=== PATIENT | female | born 1975 | race Caucasian/White ===

== ENCOUNTER 2024-08-23 23:37 | Emergency (ER) | payer OTHER ==
[2024-08-24] MEDS: KETOROLAC 15 MG/ML 1 ML VIAL IM STA (00:15)
[2024-08-24] MEDS: DEXAMETHASONE SOD PHOSPHATE 10 MG/ML 1 ML VIAL IM STA (00:16)
[2024-08-24] MEDS: HYDROmorphone 0.5 MG/0.5 ML SYRINGE IM STA (00:16)
[2024-08-24] MEDS: LIDOCAINE 4% PATCH TOPICAL ONE (00:20)
--- NOTE | 2024-08-24 01:24 | US ---
EXAMINATION TYPE: US venous doppler duplex LE RT DATE OF EXAM: 08/24/2024 12:54 AM COMPARISON: NONE CLINICAL INDICATION: Female, 49 years old with history of pain; Patient states back pain with right l eg cramping that started today. No hx dvt. Patient is not on blood thinners. TECHNIQUE: The lower extremity deep venous system is examined utilizing real time linear array sonog christine with graded compression, color doppler sonography, and spectral doppler. SIDE PERFORMED: Right FINDINGS: VESSELS IMAGED: Common Femoral Vein Deep Femoral Vein Greater Saphenous Vein * Femoral Vein Popliteal Vein Small Saphenous Vein * Proximal Calf Veins (* superficial vessels) Right Leg: Appears negative for DVT IMPRESSION: 1. No evidence of deep vein thrombosis of the right lower extremity. [facility], , 08/24/2024 1:22 AM
[2024-08-24 01:48] VITALS: RESP 18
[2024-08-24] MEDS: HYDROmorphone 0.5 MG/0.5 ML SYRINGE IVP STA (01:48)
--- NOTE | 2024-08-24 01:52 | XR ---
EXAMINATION TYPE: XR lumbar spine 2 or 3V DATE OF EXAM: 08/24/2024 CLINICAL HISTORY: Low back pain after injury TECHNIQUE: Frontal and lateral images of the lumbar spine are obtained. COMPARISON: None. FINDINGS: There are 5 lumbar type vertebral bodies identified. The lumbar spine shows satisfactory alignment without evidence of acute fracture or dislocation. Vertebral body heights and disk space he ights are within normal limits. Essure tubes overlie the sacrum. IMPRESSION: No acute fracture or dislocation is seen in the lumbar spine. [facility], , 08/24/2024 1:50 AM
--- NOTE | 2024-08-24 02:44 | ED ---
Back Pain HPI - General Chief Complaint: Back Pain/Injury Stated Complaint: back pain Time Seen by Provider: 08/23/24 23:46 Source: patient Limitations: no limitations - History of Present Illness Initial Comments: 49-year-old female presenting chief complaint of sciatic pain. Patient has history of sciatic pain. Pain is radiating down her right leg. States that it is particularly bad in her calf at this time. She admits to some numbness and tingling as well in the toes. Denies any injury or trauma. No loss of bowel or bladder control or saddle paresthesia. No fever, chills, nausea, vomiting, abdominal pain, dysuria, hematuria, lower extremity swelling, chest pain, difficulty breathing. - Related Data Previous Rx's Medication Instructions Recorded HYDROcodone/APAP 7.5-325MG [[place] 1 tab PO Q6HR PRN 3 Days #12 tab 08/24/24 7.5-325] Ketorolac [Toradol] 10 mg PO Q6HR PRN #12 tab 08/24/24 Allergies Allergy/AdvReac Type Severity Reaction Status Date / Time morphine AdvReac Itching Verified 08/24/24 00:14 Review of Systems ROS Statement: Those systems with pertinent positive or pertinent negative responses have been documented in the HPI. ROS Other: All systems not noted in ROS Statement are negative. Past Medical History Past Medical History: No Reported History History of Any Multi-Drug Resistant Organisms: None Reported Past Surgical History: Section, Tubal Ligation Additional Past Surgical History / Comment(s): D&C Past Psychological History: No Psychological Hx Reported Smoking Status: Never smoker Past Alcohol Use History: Occasional Past Drug Use History: None Reported General Exam Limitations: no limitations General appearance: alert, in no apparent distress Head exam: Present: atraumatic, normocephalic, normal inspection Eye exam: Present: normal appearance Neck exam: Present: normal inspection Respiratory exam: Present: normal lung sounds bilaterally. Absent: respiratory distress, wheezes, rales, rhonchi, stridor Cardiovascular Exam: Present: regular rate, normal rhythm, normal heart sounds. Absent: systolic murmur, diastolic murmur, rubs, gallop, clicks Extremities exam: Present: normal inspection, full ROM, other. Absent: pedal e sirisha Back exam: Present: normal inspection. Absent: tenderness Neurological exam: Present: alert, oriented X3 Expanded Motor strength exam: RLE: 5, LLE: 5 Psychiatric exam: Present: normal affect, normal mood Skin exam: Present: warm, dry Course Vital Signs 08/23/24 08/24/24 08/24/24 23:38 01:43 02:50 Temperature 97.8 F 98.4 F Pulse Rate 77 68 67 Respiratory 16 18 18 Rate Blood Pressure 133/76 153/81 126/72 O2 Sat by Pulse 97 97 97 Oximetry Medical Decision Making - Medical Decision Making Was pt. sent in by a medical professional or institution (, PA, STAGE MANAGER, urgent care, hospital, or detention...) When possible be specific @ -[No] Did you speak to anyone other than the patient for history (EMS, parent, family, police, friend...)? What history was obtained from this source @ -[No] Did you review nursing and triage notes (agree or disagree)? Why? @ -[I reviewed and agree with nursing and triage notes] Were old charts reviewed (outside hosp., previous admission, EMS record, old EKG, old radiological studies, urgent care reports/EKG's, detention records)? Report findings @ -[No old charts were reviewed] Differential Diagnosis (chest pain, altered mental status, abdominal pain women, abdominal pain men, vaginal bleeding, weakness, fever, dyspnea, syncope, headache, dizziness, GI bleed, back pain, seizure, CVA, palpatations, mental health, musculoskeletal)? @ - [facility] Differential Back Pain: Strain, zoster, cauda equina syndrome, epidural abscess, vertebral osteomyelitis, discitis, fracture, subluxation, disc herniation, DJD, spinal stenosis, dissection, AAA, pancreatitis, peptic ulcer disease, pyelonephritis, kidney stone this is not meant to be an all-inclusive list. EKG interpreted by me (3pts min.). @ -[As above] X-rays interpreted by me (1pt min.). @ -X-ray shows no acute fracture or dislocation CT of the lumbar spine CT interpreted by me (1pt min.). @ -[None done] U/S interpreted by me (1pt. min.). @ -Ultrasound shows no evidence of DVT of the right lower extremity What testing was considered but not performed or refused? (CT, X-rays, U/S, labs)? Why? @ -[None] What meds were considered but not given or refused? Why? @ -[None] Did you discuss the management of the patient with other professionals (professionals i.e. , PA, STAGE MANAGER, lab, RT, psych nurse, geriatric social work professor, rehab assistant, teacher, strategic debriefing officer, renal case manager)? Give summary @ -[No] Was smoking cessation discussed for >3mins.? @ -[No] Was critical care preformed (if so, how long)? @ -[No] Were there social determinants of health that impacted care today? How? (Homelessness, low income, unemployed, alcoholism, drug addiction, transportation, low edu. Level, literacy, decrease access to med. care, penitentiary, rehab)? @ -[No] Was there de-escalation of care discussed even if they declined (Discuss DNR or withdrawal of care, Hospice)? DNR status @ -[No] What co-morbidities impacted this encounter? (DM, HTN, Smoking, COPD, CAD, Cancer, CVA, ARF, Chemo, Hep., AIDS, mental health diagnosis, sleep apnea, morbid obesity)? @ -[None] Was patient admitted / discharged? Hospital course, mention meds given and route, prescriptions, significant lab abnormalities, going to OR and other pertinent info. @ -49-year-old female presenting with chief complaint of exacerbation of her sciatic pain. No injury or trauma. No red flag symptoms. History and physical examination are conducted. Patient is given pain medication. Considering she is having pain to the right lower leg ultrasound is obtained. X-ray of the lumbar spine is also obtained. X-ray and ultrasound are negative. On reassessment patient reports improvement in her pain. She is provided with pain medication for home and referral to orthopedics. Discharged. Follow-up with PCP. Report back to ER with any new or worsening symptoms. Discussed return parameters and answered all questions. Patient conveyed verbal understanding and agreed to the plan. I discussed this case in detail with my attending Dr. Grider Undiagnosed new problem with uncertain prognosis? @ -[No] Drug Therapy requiring intensive monitoring for toxicity (Heparin, Nitro, Insulin, Cardizem)? @ -[No] Were any procedures done? @ -[No] Diagnosis/symptom? @ -Sciatica Acute, or Chronic, or Acute on Chronic? @ -Acute Uncomplicated (without systemic symptoms) or Complicated (systemic symptoms)? @ -Uncomplicated Side effects of treatment? @ -[No] Exacerbation, Progression, or Severe Exacerbation? @ -[No] Poses a threat to life or bodily function? How? (Chest pain, USA, [place], pneumonia, PE, COPD, DKA, ARF, appy, cholecystitis, CVA, Diverticulitis, Homicidal, Suicidal, threat to staff... and all critical care pts) @ -[No] Undiagnosed new problem with uncertain prognosis? @ -[No] Drug Therapy requiring intensive monitoring for toxicity (Heparin, Nitro, Insulin, Cardizem)? @ -[No] Were any procedures done? @ -[No] Diagnosis/symptom? @ -[default] Acute, or Chronic, or Acute on Chronic? @ -[default] Uncomplicated (without systemic symptoms) or Complicated (systemic symptoms)? @ -[default] Side effects of treatment? @ -[No] Exacerbation, Progression, or Severe Exacerbation? @ -[No] Poses a threat to life or bodily function? How? (Chest pain, USA, CA, pneumonia, PE, COPD, DKA, ARF, appy, cholecystitis, CVA, Diverticulitis, Homicidal, Suicidal, threat to staff... and all critical care pts) @ -Not unlikely Disposition Clinical Impression: Sciatica Disposition: HOME SELF-CARE Condition: Good Instructions (If sedation given, give patient instructions): Sciatica (ED) Additional Instructions: Follow-up with PCP and orthopedics. Report back to ER with any new or worsening symptoms. Do not combine ketorolac with other NSAIDs such as ibuprofen or naproxen. Prescriptions: HYDROcodone/APAP 7.5-325MG [[place] 7.5-325] 1 tab PO Q6HR PRN 3 Days #12 tab PRN Reason: Pain Ketorolac [Toradol] 10 mg PO Q6HR PRN #12 tab PRN Reason: Pain Is patient prescribed a controlled substance at d/c from ED?: Yes When asked, does pt state using other controlled substances?: No If prescribed controlled substance>3 days was MAPS reviewed?: Prescribed <3 Days If opioid is for acute pain is fill amount 7 days or less?: Yes Referrals: Samy Wall MD [Primary Care Provider] - 1-2 days Ameya Doyle DO [Doctor of Osteopathic Medicine] - 1-2 days Time of Disposition: 02:44
[2024-08-24] MEDS: HYDROcodone/APAP 7.5-325MG 1 EACH TAB PO ONE (02:59)
[2024-08-24 03:06] VITALS: BP 126/72; PULSE 67; TEMP 98.4
== END 2024-08-24 02:55 | disposition home or self-care (01) ==
LOC: EC 23:37
CPT/HCPCS: 72100; 96372; 96374; 99284

== ENCOUNTER 2024-08-25 13:59 | Observation (INO) | payer OTHER ==
--- NOTE | 2024-08-25 16:18 | ED ---
Back Pain HPI - General Chief Complaint: Back Pain/Injury Stated Complaint: R sided nerve pain Time Seen by Provider: 08/25/24 15:28 Source: family, RN notes reviewed, old records reviewed, Caregiver Mode of arrival: ambulatory Limitations: physical limitation - History of Present Illness Initial Comments: This is a 49-year-old female to the ER. Presents today for evaluation of back pain severe back pain with revisit, patient was here few days ago with severe back pain did outpatient prescription medications exercise and bedrest without help. Patient's pain is severe severely worse than was prior with no new trauma, no neurological deficit but she does complain of increased pain to touch of the right leg Complaint: back pain -: days(s) Place: home Radiation: none Severity: severe Severity scale (1-10): 10 Quality: sharp Consistency: constant Improves With: none Worsens With: none Context: while lifting, turning/twisting, bending Associated Symptoms: denies other symptoms - Related Data Home Medications Medication Instructions Recorded Confirmed Ascorbic Acid [Vitamin C] 1,000 mg PO DAILY 08/25/24 08/25/24 Cholecalciferol (Vitamin D3) 50 mcg PO DAILY 08/25/24 08/25/24 [Vitamin D3 (50 Mcg = 2000 Iu)] Cyanocobalamin (Vitamin B-12) 1,000 mcg PO DAILY 08/25/24 08/25/24 [Vitamin B-12] Inulin/Chromium Picolinate [Fiber 1 tab PO DAILY 08/25/24 08/25/24 Gummies Chew] L.acidoph,Paracasei, B.lactis 1 cap PO DAILY 08/25/24 08/25/24 [Probiotic] Red Yeast Rice 600 mg PO DAILY 08/25/24 08/25/24 methocarbamoL [Robaxin] 500 mg PO BID 08/25/24 08/25/24 Previous Rx's Medication Instructions Recorded Ketorolac [Toradol] 10 mg PO Q6HR PRN #12 tab 08/24/24 Cyclobenzaprine [Flexeril] 5 mg PO TID PRN #40 tablet 08/28/24 Fluconazole [Diflucan] 150 mg PO DAILY #2 tab 08/28/24 HYDROcodone/APAP 7.5-325MG [[place] 1 tab PO Q4-6H PRN #40 tab 08/28/24 7.5-325] methylPREDNISolone Dose Pack 4 mg PO DIRECTED #1 packet 08/28/24 [Medrol Dose Pack] Allergies Allergy/AdvReac Type Severity Reaction Status Date / Time morphine AdvReac Itching Verified 08/25/24 19:21 Review of Systems ROS Statement: Those systems with pertinent positive or pertinent negative responses have been documented in the HPI. ROS Other: All systems not noted in ROS Statement are negative. Past Medical History Past Medical History: No Reported History History of Any Multi-Drug Resistant Organisms: None Reported Past Surgical History: Section, Tubal Ligation Additional Past Surgical History / Comment(s): D&C Past Psychological History: No Psychological Hx Reported Smoking Status: Never smoker Past Alcohol Use History: Occasional Past Drug Use History: None Reported General Exam Limitations: physical limitation General appearance: alert, in no apparent distress Head exam: Present: atraumatic, normocephalic, normal inspection Eye exam: Present: normal appearance, PERRL, EOMI. Absent: scleral icterus, conjunctival injection, periorbital swelling ENT exam: Present: normal exam, mucous membranes moist Neck exam: Present: normal inspection. Absent: tenderness, meningismus, lymphadenopathy Respiratory exam: Present: normal lung sounds bilaterally. Absent: respiratory distress, wheezes, rales, rhonchi, stridor Cardiovascular Exam: Present: regular rate, normal rhythm, normal heart sounds. Absent: systolic murmur, diastolic murmur, rubs, gallop, clicks GI/Abdominal exam: Present: soft, normal bowel sounds. Absent: distended, tenderness, guarding, rebound, rigid Extremities exam: Present: normal inspection, full ROM, normal capillary refill. Absent: tenderness, pedal edema, joint swelling, calf tenderness Back exam: Present: normal inspection Neurological exam: Present: alert, oriented X3, CN II-XII intact Psychiatric exam: Present: normal affect, normal mood Skin exam: Present: warm, dry, intact, normal color. Absent: rash Course Vital Signs 08/25/24 08/25/24 14:30 17:32 Temperature 98.1 F 97.9 F Pulse Rate 67 64 Respiratory 18 16 Rate Blood Pressure 147/90 149/80 O2 Sat by Pulse 98 98 Oximetry - Reevaluation(s) Reevaluation #1: 08/25/24 16:34 Medical records reviewed Reevaluation #2: 08/25/24 16:50 Patient symptoms improved Reevaluation #3: 08/25/24 19:14 Patient informed of results questions answered Reevaluation #4: Was pt. sent in by a medical professional or institution (ADALI Victoria, MEDICAL ADMINISTRATIVE, urgent care, hospital, or longterm...) When possible be specific @ -no Did you speak to anyone other than the patient for history (EMS, parent, family, police, friend...)? What history was obtained from this source @ -no Did you review nursing and triage notes (agree or disagree)? Why? @ -agree Are old charts reviewed (outside hosp., previous admission, EMS record, old EKG, old radiological studies, urgent care reports/EKG's, longterm records)? Report findings @ -yes Differential Diagnosis (chest pain, altered mental status, abdominal pain women, abdominal pain men, vaginal bleeding, weakness, fever, dyspnea, syncope, headache, dizziness, GI bleed, back pain, seizure, CVA, palpatations, mental health, musculoskeletal)? @ -prior EKG interpreted by me (3pts min.). @ -no X-rays interpreted by me (1pt min.). @ -no CT interpreted by me (1pt min.). @ -Yes positive for likely nerve impingement with hernia U/S interpreted by me (1pt. min.). @ -no What testing was considered but not performed or refused? (CT, X-rays, U/S, l abs)? Why? @ -none What meds were considered but not given or refused? Why? @ -none Did you discuss the management of the patient with other professionals (professionals i.e. ADALI Victoria, MEDICAL ADMINISTRATIVE, lab, RT, psych nurse, social service technician, basting puller, teacher, finance officer, case aide)? Give summary @ -no Was smoking cessation discussed for >3mins.? @ -no Was critical care preformed (if so, how long)? @ -no Were there social determinants of health that impacted care today? How? (Homelessness, low income, unemployed, alcoholism, drug addiction, transportation, low edu. Level, literacy, decrease access to med. care, [facility], rehab)? @ -none Was there de-escalation of care discussed even if they declined (Discuss DNR or withdrawal of care, Hospice)? DNR status @ -no What co-morbidities impacted this encounter? (DM, HTN, Smoking, COPD, CAD, Cancer, CVA, ARF, Chemo, Hep., AIDS, mental health diagnosis, sleep apnea, morbid obesity)? @ -none Was patient admitted / discharged? Hospital course, mention meds given and route, prescriptions, significant lab abnormalities, going to OR and other pertinent info. @ - 49 female to the ER for evaluation patient presents today for evaluation in regards to severe back pain and sciatica pain, patient will be admitted for orthopedic spine evaluation Admitted Undiagnosed new problem with uncertain prognosis? @ -no Drug Therapy requiring intensive monitoring for toxicity (Heparin, Nitro, Insulin, Cardizem)? @ -no Were any procedures done? @ -no Diagnosis/symptom? @ -Back pain with nerve impingement Acute, or Chronic, or Acute on Chronic? @ -Acute Uncomplicated (without systemic symptoms) or Complicated (systemic symptoms)? @ -Complicated Side effects of treatment? @ -no Exacerbation, Progression, or Severe Exacerbation? @ -exacerbation Poses a threat to life or bodily function? How? (Chest pain, [place], [place], pneumonia, PE, COPD, DKA, ARF, appy, cholecystitis, CVA, Diverticulitis, Homicidal, Suicidal, threat to staff... and all critical care pts) @ -yes significant sciatica Reevaluation #5: Differential Back Pain: Strain, zoster, cauda equina syndrome, epidural abscess, vertebral osteomyelitis, discitis, fracture, subluxation, disc herniation, DJD, spinal stenosis, dissection, AAA, pancreatitis, peptic ulcer disease, pyelonephritis, kidney stone, this is not meant to be an all-inclusive list. - Consultations Consultation #1: Dr. Carlos's and will see this patient in consult Consultation #2: Spoke with micki who agrees to admit this patient Medical Decision Making - Medical Decision Making 49 female to the ER for evaluation patient presents today for evaluation in regards to severe back pain and sciatica pain, patient will be admitted for orthopedic spine evaluation - Lab Data Result diagrams: 08/28/24 03:25 08/28/24 03:25 Lab Results 08/25/24 08/25/24 08/25/24 Range/Units 16:28 16:28 16:28 WBC 5.8 (3.8-10.6) k/uL RBC 4.47 (3.80-5.40) m/uL Hgb 13.9 (11.4-16.0) gm/dL Hct 42.5 (34.0-46.0) % MCV 94.9 (80.0-100.0) fL MCH 31.0 (25.0-35.0) pg MCHC 32.6 (31.0-37.0) g/dL RDW 12.4 (11.5-15.5) % Plt Count 146 L (150-450) k/uL MPV 9.6 Neutrophils % 81 % Lymphocytes % 13 % Monocytes % 4 % Eosinophils % 1 % Basophils % 0 % Neutrophils # 4.7 (1.3-7.7) k/uL Lymphocytes # 0.8 L (1.0-4.8) k/uL Monocytes # 0.2 (0-1.0) k/uL Eosinophils # 0.0 (0-0.7) k/uL Basophils # 0.0 (0-0.2) k/uL PT 11.3 (10.0-12.5) sec INR 1.0 (<1.2) APTT 23.9 (22.0-30.0) sec Sodium 137 (137-145) mmol/L Potassium 4.9 (3.5-5.1) mmol/L Chloride 107 (98-107) mmol/L Carbon Dioxide 22 (22-30) mmol/L Anion Gap 8 mmol/L BUN 22 H (7-17) mg/dL Creatinine 0.56 (0.52-1.04) mg/dL Est GFR (CKD-EPI)AfAm >90 (>60 ml/min/1.73 sqM) Est GFR (CKD-EPI)NonAf >90 (>60 ml/min/1.73 sqM) Glucose 115 H (74-99) mg/dL Plasma Lactic Acid Cm (0.7-2.0) mmol/L Calcium 9.4 (8.4-10.2) mg/dL Phosphorus 3.6 (2.4-5.1) Magnesium 1.8 (1.6-2.3) mg/dL Total Bilirubin 0.7 (0.2-1.3) mg/dL AST 40 H (14-36) U/L ALT 32 (4-34) U/L Alkaline Phosphatase 49 (38-126) U/L Troponin I (0.000-0.034) ng/mL Total Protein 7.7 (6.3-8.2) g/dL Albumin 4.9 (3.5-5.0) g/dL 08/25/24 08/25/24 Range/Units 16:28 16:28 WBC (3.8-10.6) k/uL RBC (3.80-5.40) m/uL Hgb (11.4-16.0) gm/dL Hct (34.0-46.0) % MCV (80.0-100.0) fL MCH (25.0-35.0) pg MCHC (31.0-37.0) g/dL RDW (11.5-15.5) % Plt Count (150-450) k/uL MPV Neutrophils % % Lymphocytes % % Monocytes % % Eosinophils % % Basophils % % Neutrophils # (1.3-7.7) k/uL Lymphocytes # (1.0-4.8) k/uL Monocytes # (0-1.0) k/uL Eosinophils # (0-0.7) k/uL Basophils # (0-0.2) k/uL PT (10.0-12.5) sec INR (<1.2) APTT (22.0-30.0) sec Sodium (137-145) mmol/L Potassium (3.5-5.1) mmol/L Chloride (98-107) mmol/L Carbon Dioxide (22-30) mmol/L Anion Gap mmol/L BUN (7-17) mg/dL Creatinine (0.52-1.04) mg/dL Est GFR (CKD-EPI)AfAm (>60 ml/min/1.73 sqM) Est GFR (CKD-EPI)NonAf (>60 ml/min/1.73 sqM) Glucose (74-99) mg/dL Plasma Lactic Acid Cm 0.8 (0.7-2.0) mmol/L Calcium (8.4-10.2) mg/dL Phosphorus (2.4-5.1) Magnesium (1.6-2.3) mg/dL Total Bilirubin (0.2-1.3) mg/dL AST (14-36) U/L ALT (4-34) U/L Alkaline Phosphatase (38-126) U/L Troponin I <0.012 (0.000-0.034) ng/mL Total Protein (6.3-8.2) g/dL Albumin (3.5-5.0) g/dL - Radiology Data Radiology results: report reviewed (CT abdomen pelvis LS spine positive for nerve compression), image reviewed Disposition Clinical Impression: Sciatica, Strain of lumbar region, Mid back pain, Lumbar radiculopathy Disposition: ADMITTED IP TO THIS [facility] Condition: Fair Is patient prescribed a controlled substance at d/c from ED?: No Time of Disposition: 19:00
[2024-08-25] MEDS: HYDROmorphone 1 MG/ML 1 ML SYRINGE IVP STA ×3 (16:24→20:30)
[2024-08-25] MEDS: KETOROLAC 15 MG/ML 1 ML VIAL IVP STA (16:24)
[2024-08-25] MEDS: SODIUM CHLORIDE 0.9% 1,000 ML IV STA ×2 (16:32)
[2024-08-25 16:38] LABS: Basophils % (A) 0 %; Eosinophils % (A) 1 %; HCT 42.5 % (34.0-46.0); HGB 13.9 gm/dL (11.4-16.0); Lymphocytes # (A) 0.8 k/uL (1.0-4.8); Lymphocytes % (A) 13 %; MCHC 32.6 g/dL (31.0-37.0); MCV 94.9 fL (80.0-100.0); Mean Platelet Volume 9.6; Monocytes # (A) 0.2 k/uL (0-1.0); Monocytes % (A) 4 %; Neutrophils # (A) 4.7 k/uL (1.3-7.7); Neutrophils % (A) 81 %; Platelet Count 146 k/uL (150-450); RBC 4.47 m/uL (3.80-5.40); RDW 12.4 % (11.5-15.5); WBC 5.8 k/uL (3.8-10.6)
[2024-08-25 16:49] LABS: Partial Thromboplastin Time 23.9 sec (22.0-30.0); Prothrombin Time 11.3 sec (10.0-12.5)
[2024-08-25] MEDS: ACETAMINOPHEN IV (For NPO) 1,000 MG in EMPTY BAG 1 BAG IVPB STA (16:53)
[2024-08-25 16:57] LABS: ALT 32 U/L (4-34); African American GFR (CKD) >90 (>60 ml/min/1.73 sqM); Albumin 4.9 g/dL (3.5-5.0); Anion Gap 8 mmol/L; Blood Urea Nitrogen 22 mg/dL (7-17); Calcium 9.4 mg/dL (8.4-10.2); Carbon Dioxide 22 mmol/L (22-30); Chloride 107 mmol/L (98-107); Glucose 115 mg/dL (74-99); Non-African American GFR(CKD) >90 (>60 ml/min/1.73 sqM); Sodium 137 mmol/L (137-145); Total Bilirubin 0.7 mg/dL (0.2-1.3)
[2024-08-25 17:08] LABS: AST 40 U/L (14-36); Alkaline Phosphatase 49 U/L (38-126); Magnesium 1.8 mg/dL (1.6-2.3); Potassium 4.9 mmol/L (3.5-5.1); Total Protein 7.7 g/dL (6.3-8.2)
[2024-08-25] MEDS ORDERED: HYDROmorphone 2 MG/ML 1 ML SYRINGE IVP PRN (18:03)
--- NOTE | 2024-08-25 18:04 | CT ---
EXAMINATION TYPE: CT lumbar spine w con DATE OF EXAM: 08/25/2024 5:46 PM COMPARISON: CT abdomen pelvis same day. . CLINICAL INDICATION: Female, 49 years old with history of back pain; PHH, C/O back pain that radiates down rt leg. TECHNIQUE: Multiple axial images were obtained from the midportion of T11 through the sacroiliac yousuf nts. Soft tissue and bone windows in coronal and sagittal planes were obtained and reviewed. 3-D ref ormats of the bones were created on a separate workstation and submitted for review. Contrast used:100ml mL of Isovue 300 with IV Contrast, (None, if empty). Oral contrast used: (None, if empty). CT DLP: Combined DLP of 984.4 mGycm, Automated exposure control for dose reduction was used. FINDINGS: Alignment: There are 5 lumbar type vertebral bodies within normal alignment. Bone: No evidence of fracture is identified. Multilevel degeneration with mild osteophyte formation and facet arthropathy. Discs: T12-L1: No spinal canal or neural foraminal stenosis is identified. L1-L2: No spinal canal or neural foraminal stenosis is identified. L2-L3: Disc bulge without significant spinal canal or neural foraminal stenosis. L3-L4: Disc bulge without significant spinal canal or neural foraminal stenosis. L4-L5: Disc bulge without significant spinal canal or neural foraminal stenosis. L5-S1: Right central and foraminal disc herniation suggested series 206 image 61 Other: None IMPRESSION: 1. No evidence for spinal fracture. 2. L5-S1 disc extrusion with displacement of the exiting right nerve.. [facility], , 08/25/2024 6:02 PM
--- NOTE | 2024-08-25 18:06 | CT ---
EXAMINATION TYPE: CT abdomen pelvis w con DATE OF EXAM: 08/25/2024 5:46 PM COMPARISON: Lumbar spine same day. CLINICAL INDICATION: Female, 49 years old with history of back pain; C/O back pain that radiates down rt leg. TECHNIQUE: Axial CT abdomen pelvis w con;Sagittal and coronal reformats were created on a separate w orkstation. Contrast used:100ml mL of Isovue 300 with IV Contrast, (none if empty) Oral contrast used: without Oral Contrast (none if empty) CT DLP: Combined DLP of 984.4 mGycm, Automated exposure control for dose reduction was used. FINDINGS: LOWER CHEST: Unremarkable ABDOMEN LIVER: Unremarkable GALLBLADDER AND BILE DUCTS: Unremarkable. PANCREAS: Unremarkable. SPLEEN: Unremarkable. ADRENAL GLANDS: Unremarkable. KIDNEYS AND URETERS: No evidence of hydronephrosis or renal calculus. The ureters are unremarkable. PELVIS BLADDER: No evidence for wall thickening or mass given limitations of exam. REPRODUCTIVE: Tubal ligation devices bilaterally present bilaterally. ABDOMEN & PELVIS STOMACH AND BOWEL: No evidence of bowel obstruction. PERITONEUM/RETROPERITONEUM: No evidence of pneumoperitoneum or free fluid. VASCULATURE: No evidence of aortic aneurysm. MUSCULOSKELETAL: No acute osseous abnormalities, L5-S1 right foraminal disc extrusion displacing the exiting right nerve. LYMPH NODES: No gross evidence for lymphadenopathy. SOFT TISSUE/ABDOMINAL WALL: Fat-containing umbilical hernia. IMPRESSION: 1. No evidence for acute abdominal process. 2. L5-S1 disc extrusion with displacement of the exiting right nerve. Consider evaluation with MRI. [facility], , 08/25/2024 6:04 PM
[2024-08-25] MEDS: diphenhydrAMINE 50 MG/ML 1 ML VIAL IVP STA (18:15)
[2024-08-25] MEDS ORDERED: ONDANSETRON 4 MG/2 ML VIAL IVP PRN (18:59)
[2024-08-25] MEDS ORDERED: NALOXONE 0.4 MG/ML 1 ML VIAL IV PRN (18:59)
--- NOTE | 2024-08-25 19:34 | P.PN ---
Progress Note - Text Progress Note Date: 08/25/24 Discussed case with ED provider. CT reviewed. Per report pt has severe RLE radiculopathy that is refractory to conservative measures. She has come back to the ED a couple of times now for eval. Initial treatment with conservative measures provided some relief, but the sx have returned and severely. No BI or UI. RLE pain and weakness and severe LBP and neurogenic pain. CT reviewed and shows two levels of severe spondylotic collapse at L4-5 and L5-S1. There is disc extrusion on the RHS of L5-S1 causing severe foraminal and central stenosis. There is a smaller HNP at L4-5 causing moderate central and severe foraminal stenosis. No fractures noted. No lesions. Agree with admission, start IV decadron, pain control, medicine to see. MRI w/o Lumbar spine URGENT. Will eval after MRI done for likely surgical intervention.
[2024-08-25] MEDS: DEXAMETHASONE SOD PHOSPHATE 10 MG/ML 1 ML VIAL IVP STA (20:30)
[2024-08-25] MEDS: SODIUM CHLORIDE 0.9% 1,000 ML IV SCH (20:31)
--- NOTE | 2024-08-25 20:34 | P.HPIM ---
History of Present Illness H&P Date: 08/25/24 Chief Complaint: Back pain History of present illness; Nga Perea is a 49-year-old female with no medical history presenting with back pain. Patient states pain began Wednesday while at gym, after her workout. She states that she was bending in the shower when pain started. Pain was in her right lower back shooting down her right leg posteriorly. She called EMS and was taken to [facility], treated for pain and subsequently discharged. Her pain continued through the day and she was seen later that evening and [facility] ER and was treated with Toradol and [facility] and was discharged. patient followed up with her PCP and was given prednisone injection and oral dose of prednisone with lidocaine patch, which only mildly improved her symptoms. Subsequently her pain worsened and return to the ER today. Today patient endorses similar pain with paresthesia in right foot. She also has hyperesthesia on her right sampson. Pain is currently 8 out of 10. She has no other complaints at this time. She reports absence of urinary retention, saddle anesthesia, fecal incontinence. Patient reports absence of fever, chills, weight loss, chest pain, palpitations, diaphoresis, dyspnea, cough, nausea, vomiting, constipation, diarrhea, abdominal pain, weakness, myalgia, dizziness, headache, and dysuria. Lumbar spine CT done independently interpreted in the ER showed no evidence of spinal fracture, L5-S1 disc extrusion with displacement of the exiting right n erve. CT abdomen and pelvis done independently interpreted showed no acute abdominal process. Spoke with the ER physician, patient admission was accepted by internal medicine service for treatment of back pain REVIEW OF SYSTEMS: Pertinent positives and negatives noted in HPI. PHYSICAL EXAMINATION: Vitals reviewed GENERAL: No acute distress. Well developed, well nourished. HEENT: Pupils are round and equally reacting to light. EOMI. No scleral icterus. Normocephalic, atraumatic. CARDIOVASCULAR: S1 and S2 present. No murmurs, rubs, or gallops. PULMONARY: Chest is clear to auscultation, no wheezing, rhonchi, or crackles. ABDOMEN: Soft, nontender, nondistended, normoactive bowel sounds. No palpable organomegaly. MUSCULOSKELETAL: No apparent joint swelling and deformities. EXTREMITIES: No apparent cyanosis, clubbing, or pedal edema. NEUROLOGICAL: The patient is alert and oriented x3, Gross neurological examination did not reveal any focal deficits. 5/5 Strength bilateral UE and LE. Positive right straight leg test, no tenderness of back, no loss of sensation. SKIN: No apparent rashes. Assessment and plan Nga Perea is a 49-year-old female with no medical history presenting with back pain. Spoke with the ER physician and admission was accepted by internal medicine for treatment of back pain and right leg radiculopathy. #Right leg radiculopathy #Back pain Lumbar spine CT and abdominal CT with findings of no spinal fracture, L5-S1 disc extrusion with displacement of the exiting nerve WBC 5.8, hemoglobin 13.9, troponin negative are all WNL Continue Dilaudid 1 mg IVP as needed q3hr for severe pain - Begin Gabapentin 400 mg BID Continue dexamethasone 4 mg IVP every 6 hour Order MRI lumbar spine wo contrast URGENT Orthopedic surgery consulted for radiculopathy F: P.o. E: Replete as needed N: Regular diet DVT ppx: Subq Lovenox 40 meq daily Code status: Full code Anticipated discharge place: Home Anticipated discharge time: Less than 2 days Dictation was produced using [employer] dictation software. Please excuse any grammatical, word or spelling errors. Past Medical History Past Medical History: No Reported History History of Any Multi-Drug Resistant Organisms: None Reported Past Surgical History: Section, Tubal Ligation Additional Past Surgical History / Comment(s): D&C Past Psychological History: No Psychological Hx Reported Smoking Status: Never smoker Past Alcohol Use History: Occasional Past Drug Use History: None Reported Medications and Allergies Home Medications Medication Instructions Recorded Confirmed Type HYDROcodone/APAP 7.5-325MG [[facility] 1 tab PO Q6HR PRN 3 Days #12 tab 08/24/24 08/25/24 Rx 7.5-325] Ketorolac [Toradol] 10 mg PO Q6HR PRN #12 tab 08/24/24 08/25/24 Rx Ascorbic Acid [Vitamin C] 1,000 mg PO DAILY 08/25/24 08/25/24 History Cholecalciferol (Vitamin D3) 50 mcg PO DAILY 08/25/24 08/25/24 History [Vitamin D3 (50 Mcg = 2000 Iu)] Cyanocobalamin (Vitamin B-12) 1,000 mcg PO DAILY 08/25/24 08/25/24 History [Vitamin B-12] Inulin/Chromium Picolinate [Fiber 1 tab PO DAILY 08/25/24 08/25/24 History Gummies Chew] L.acidoph,Paracasei, B.lactis 1 cap PO DAILY 08/25/24 08/25/24 History [Probiotic] Lidocaine 5% Patch [Lidoderm] 1 patch TOPICAL DAILY 08/25/24 08/25/24 History Red Yeast Rice 600 mg PO DAILY 08/25/24 08/25/24 History methocarbamoL [Robaxin] 500 mg PO BID 08/25/24 08/25/24 History predniSONE See Taper PO DIRECTED 08/25/24 08/25/24 History Allergies Allergy/AdvReac Type Severity Reaction Status Date / Time morphine AdvReac Itching Verified 08/25/24 19:21 Physical Exam Vitals: Vital Signs Temp Pulse Resp BP Pulse Ox 08/25/24 17:32 97.9 F 64 16 149/80 98 08/25/24 14:30 98.1 F 67 18 147/90 98 Intake and Output 08/25/24 08/25/24 08/25/24 06:59 14:59 22:59 Other: Weight 74.843 kg Results CBC & Chem 7: 08/25/24 16:28 08/25/24 16:28 Labs: Abnormal Lab Results - Last 24 Hours (Table) 08/25/24 08/25/24 Range/Units 16:28 16:28 Plt Count 146 L (150-450) k/uL Lymphocytes # 0.8 L (1.0-4.8) k/uL BUN 22 H (7-17) mg/dL Glucose 115 H (74-99) mg/dL AST 40 H (14-36) U/L Assessment and Plan Assessment: I have seen and evaluated the patient today. I Discussed the case with the resident and agree with the resident's findings I edited the assessment and plan as necessary as documented in the resident's note.
[2024-08-25] MEDS: LORazepam 2 MG/ML INJ IV STA (20:35)
--- NOTE | 2024-08-25 22:08 | MR ---
EXAMINATION TYPE: MR lumbar spine wo con DATE OF EXAM: 08/25/2024 9:48 PM COMPARISON: CT same day. CLINICAL INDICATION: Female, 49 years old with history of radiculopathy, Radiculopathy, low back pain into right leg TECHNIQUE: Multi planar, multi sequence imaging was performed utilizing: T1-weighted, T2-weighted, a nd turbo inversion recovery imaging of the lumbar spine. IV Contrast: cc . (None if empty) FINDINGS: Alignment: The lumbar vertebral bodies have preserved heights and alignment. Cord: The conus medullaris and the distal spinal cord appear unremarkable with regards to their signa l intensity and morphology. Bones/Discs: Mild degeneration changes throughout the spine with osteophyte formation and facet joint arthropathy. Intervertebral disc signal is maintained. Reactive adjoining endplate edema at L5-S1 T12-L1: No evidence of significant spinal canal stenosis or neural foraminal stenosis. L1-L2: No evidence of significant spinal canal stenosis or neural foraminal stenosis. L2-L3: No evidence of significant spinal canal stenosis. Facet joint arthropathy mild bilateral neura l foraminal stenosis. L3-L4: No evidence of significant spinal canal stenosis. Facet joint arthropathy mild bilateral neura l foraminal stenosis. L4-L5: No evidence of significant spinal canal stenosis. Facet joint arthropathy mild bilateral neura l foraminal stenosis. L5-S1: Right foraminal/right paracentral disc extrusion with 11 mm superior migration. 7 mm focus of disc sequestration also present near the L4-L5 joint space series 411 image 13 No significant spinal canal or neural foraminal stenosis in the remainder of the visualized levels. Other findings: None. IMPRESSION: Findings confirmed from CT same day with disc extrusion with superior migration of disc material up t o 11 mm with disc sequestration also present measuring 7 mm. This displaces the exiting right nerve a t L5-S1. [facility], Workstation: [id number], 08/25/2024 10:06 PM
[2024-08-26] MEDS: GABAPENTIN 400 MG CAP PO SCH (00:01)
[2024-08-26] MEDS: HYDROmorphone 2 MG/ML 1 ML SYRINGE IVP PRN (00:01)
[2024-08-26] MEDS: DEXAMETHASONE SOD PHOSPHATE 4 MG/ML 1 ML VIAL IVP SCH (00:01)
[2024-08-26 04:23] LABS: Appearance,Urine Clear (Clear); Bilirubin,Urine Negative (Negative); Blood,Urine Negative (Negative); Color,Urine Colorless; Glucose,Urine (UA) Negative (Negative); Ketones,Urine Negative (Negative); Leukocyte Esterase,Urine Negative (Negative); Nitrite,Urine Negative (Negative); PH, Urine 6.5 (5.0-8.0); Protein,Urine Negative (Negative); Specific Gravity,Urine 1.032 (1.001-1.035); Urobilinogen,Urine <2.0 mg/dL (<2.0)
[2024-08-26 09:03] LABS: Basophils # (A) 0 X 10*3/uL (0.00-0.10); Basophils % (A) 0 %; Eosinophils # (A) 0 X 10*3/uL (0.04-0.35); Eosinophils % (A) 0 %; HCT 36.7 % (37.2-46.3); HGB 12.1 g/dL (12.0-15.0); Lymphocytes # (A) 0.38 X 10*3/uL (0.90-5.00); Lymphocytes % (A) 7.8 %; MCH 31.8 pg (27.0-32.0); MCV 96.6 FL (80.0-97.0); Mean Platelet Volume 12.6 FL (9.5-12.2); Monocytes # (A) 0.06 X 10*3/uL (0.20-1.00); Monocytes % (A) 1.2 %; NRBC Per 100 WBC 0 X 10*3/uL (0.00-0.01); Neutrophils % (A) 90.6 %; Platelet Count 133 X 10*3/uL (140-440); RDW 12.9 % (11.5-14.5); WBC 4.86 X 10*3/uL (4.50-10.00)
[2024-08-26 09:17] LABS: Albumin 4.2 g/dL (3.8-4.9); BUN/Creat Ratio 28.33 Ratio (12.00-20.00); Carbon Dioxide 22.3 mmol/L (21.6-31.8); Chloride 105 mmol/L (96-109); Glucose 147 mg/dL (70-110); Potassium 4.7 mmol/L (3.5-5.5); Sodium 138 mmol/L (135-145); Total Protein 6.3 g/dL (6.2-8.2)
[2024-08-26 09:18] LABS: ALT 25 U/L (8-44); AST 20 U/L (13-35); Alkaline Phosphatase 50 U/L (41-126); Globulin 2.1 g/dL (1.6-3.3); Total Bilirubin 0.3 mg/dL (0.3-1.2)
[2024-08-26] MEDS: PANTOPRAZOLE 40 MG/10 ML VIAL IV SCH (10:05)
[2024-08-26] MEDS: ENOXAPARIN 40 MG/0.4 ML SYRINGE SQ SCH (10:06)
[2024-08-26] MEDS: SENNOSIDES 8.6 MG TAB PO SCH (11:08)
--- NOTE | 2024-08-26 15:36 | P.PN ---
Subjective Progress Note Date: 08/26/24 Subjective: Patient seen and examined at the bedside. Patient continues to have 8 out of 10 lower back pain radiating down her right leg associated with weakness, numbness and tingling All Systems reviewed and pertinent positives and negatives noted in HPI, all other symptoms are negative Objective: Vital signs reviewed. General: non toxic, no distress, appears at stated age, normal weight Derm: no unusual rashes/lesions, warm Head: atraumatic, normocephalic, symmetric Eyes: EOMI, no lid lag, anicteric sclera, pupils equal round reactive to light ENT: Nose and ears atraumatic Neck: No cervical lymphadenopathy, trachea midline, supple Mouth: no lip lesion, mucus membranes moist Cardiovascular: S1S2 reg, no murmur, positive dorsalis pedis pulse bilateral, no edema Lungs: CTA bilateral, no rhonchi, no rales, no accessory muscle use Abdominal: soft, nontender to palpation, no guarding Ext: muscle strength 5 out of 5 in all 4 extremities grossly, no gross muscle atrophy, no contractures, Neuro: CN II-XI grossly intact, no gross focal neuro deficits Psych: Alert, oriented, appropriate affect Data reviewed today: Pertinent Labs: WBC 4.86, hemoglobin 12.1, platelet count 133, sodium 138, potassium 4.7, creatinine 0.6, glucose 147, calcium 9.0 Images: No new images Assessment and Plan: Nga Perea is a 49-year-old female with no medical history presenting with back pain. Spoke with the ER physician and admission was accepted by internal medicine for treatment of back pain and right leg radiculopathy. #Back pain refractory to conservative measures #Right leg radiculopathy secondary to lumbosacral disc herniation #History of right sciatica Lumbar spine CT and abdominal CT with findings of no spinal fracture, L5-S1 disc extrusion with displacement of the exiting nerve Lumbar spine MRI shows disc extrusion at L5-S1 and disc sequestration at L4-L5 Continue Dilaudid 1 mg IVP as needed q3hr for severe pain Continue with gabapentin 400 mg BID Continue dexamethasone 4 mg IVP every 6 hour Orthopedic surgery consulted for radiculopathy, likely need surgical intervention F: P.o. E: Replete as needed N: Regular diet DVT ppx: Subq Lovenox 40 meq daily Code status: Full code Anticipated discharge place: Home Anticipated discharge time: Less than 2 days I saw and evaluated the patient during the cervantes and critical portions of this encounter, and discussed the case in detail with the resident author of this note, I agree with the Assessment and Plan, and my changes, if any, are highlighted in blue. Objective - Vital Signs Vital signs: Vital Signs Temp 98.2 F 08/26/24 08:12 Pulse 87 08/26/24 08:12 Resp 16 08/26/24 08:12 BP 120/66 08/26/24 08:12 Pulse Ox 93 L 08/26/24 08:12 FiO2 Intake & Output 08/25/24 08/26/24 08/26/24 18:59 06:59 18:59 Output Total 450 Balance -450 Weight 74.843 kg 74.843 kg Output: Urine 450 Other: Voiding Method Toilet - Labs CBC & Chem 7: 08/26/24 04:42 08/26/24 04:42 Labs: Abnormal Lab Results - Last 24 Hours (Table) 08/25/24 08/25/24 08/26/24 Range/Units 16:28 16:28 04:42 RBC 3.80 L (4.10-5.20) X 10*6/uL Hct 36.7 L (37.2-46.3) % Plt Count 146 L 133 L (150-450) k/uL MPV 12.6 H (9.5-12.2) FL Lymphocytes # 0.8 L 0.38 L (1.0-4.8) k/uL Monocytes # 0.06 L (0.20-1.00) X 10*3/uL Eosinophils # 0 L (0.04-0.35) X 10*3/uL BUN 22 H (7-17) mg/dL BUN/Creatinine Ratio (12.00-20.00) Ratio Glucose 115 H (74-99) mg/dL AST 40 H (14-36) U/L 08/26/24 Range/Units 04:42 RBC (4.10-5.20) X 10*6/uL Hct (37.2-46.3) % Plt Count (150-450) k/uL MPV (9.5-12.2) FL Lymphocytes # (1.0-4.8) k/uL Monocytes # (0.20-1.00) X 10*3/uL Eosinophils # (0.04-0.35) X 10*3/uL BUN (7-17) mg/dL BUN/Creatinine Ratio 28.33 H (12.00-20.00) Ratio Glucose 147 H (74-99) mg/dL AST (14-36) U/L
--- NOTE | 2024-08-26 15:44 | P.CNOR ---
History of Present Illness - [facility] Consult date: 08/26/24 Requesting physician: Michael Mendoza Consult reason: other (RLE radiculopathy, back pain) History of present illness: History of Presenting Illness Patient is a pleasant 49-year-old female who presented to the ER due to increased back pain that radiates into her right lower extremity. Our services have been consulted for further evaluation of her lumbar spine. Patient states that her symptoms began on 08/23/2024, after she completed a workout at the gym. Patient states that she had been to the ER with evaluation and was discharged home. Patient states the she then followed up with her PCP and was provided a steroid injection, steroid pack, and lidocaine patches. she reports mild relief of her symptoms. Patient return to the ER last night, 08/25/2024, with increased pain in her low back radiating into the right lower extremity with numbness and tingling. Patient seen and examined today on 4 S.S. Patient is resting comfortably in bed. Spouse is at bedside. Patient continues to report moderate to severe low back pain that radiates into the right lower extremity, associated with numbness and tingling. patient also describes hyperesthesia of her right sampson. Patient denies any bowel or bladder incontinence or retention, perineal numbness or tingling, or saddle anesthesia. CT and MRI of the lumbar spine have been discus sed with patient. Informed patient that we are recommending surgical intervention of L5-S1 minimally invasive right laminoforaminotomy with microdiscectomy. Questions and concerns have been discussed and patient would like to proceed with surgical intervention tomorrow 08/27/2024. Patient will be n.p.o. at midnight. Review of Systems Pertinent positives and negatives as discussed in HPI, a complete review of systems was performed and all other systems are negative. Physical Examination General: The patient is awake and alert, in no acute distress Skin: Skin is warm and dry with no obvious rashes or lesions. Eye: Pupils are equal, round and reactive to light, extra-ocular movements are intact; there is normal conjunctiva bilaterally. Neck: The neck is supple, there is no tenderness and ROM intact. Cardiovascular: There is a regular rate and rhythm. No murmur, rub or gallop is appreciated. Respiratory: Respirations are non-labored, breath sounds are equal. Gastrointestinal: Soft, slightly distended, tender abdomen to palpation Back: There is no tenderness to palpation in the midline, paralumbar, parathoracic or buttocks region. There is no obvious deformity. Musculoskeletal: Right: Shoulder abduction 5/5, elbow flexors 5/5, wrist dorsiflexors 5/5. finger abductor 5/5, expediter 5/5, hip flexor 5/5, knee flexor 4/ 5, ankle dorsiflexor 4/5, ankle plantarflexion 4/5 and extensor hallucis 4/5. Left: Shoulder abduction 5/5, elbow flexors 5/5, wrist dorsiflexors 5/5. finger abductor 5/5, expediter 5/5, hip flexor 5/5, knee flexor 5/5, ankle dorsiflexor 5/5, ankle plantarflexion 5/5 and extensor hallucis 5/5. Neurological: CN 2-12 intact. There are no obvious motor or sensory deficits. Movement and coordination equal and intact. Sensory exam to light touch intact C5-T1 and intact from L2-S1. Reflexes 2/4 in bilateral upper and lower extremities. Negative Hoffmans, babinski, and clonus signs. Psychiatric: Cooperative, appropriate mood & affect, normal judgment. Assessment and Plan MRI of the lumbar spine taken on 08/25/2024 demonstrates confirmed findings of the CT with disc extrusion with superior migration of disc material up to 11 mm with disc sequestration also measuring 7 mm. This is displacing the exiting right nerve at L5-S1. - L4-S1 spondylosis - L4-L5 left foraminal stenosis - L5-S1 large disc extrusion resulting in severe right foraminal stenosis - Right lower extremity radiculopathy - Right lower extremity weakness At this time we do recommend surgical intervention of L5-S1 minimally invasive right laminoforaminotomy with microdiscectomy. Patient is agreeable and would like to move forward with surgery that is scheduled for 08/27/2024. Patient will be n.p.o. at midnight. 2. Appreciate medical management 3. Pain management - continue with current pain regimen including IV Decadron 4. GI prophylaxis - senna, MiraLAX 5. DVT prophylaxis - TEDs, SCDs 6. PT/OT - weightbearing as tolerated with a walker as needed. 7. Appreciate consult I reviewed and discussed this case with my attending Dr. Ricardo, whom has reviewed this chart and films and is in agreement with assessment and plan of care as outlined above. I have personally seen and examined the patient, performed the documentation and the assessment and plan as written. Number of minutes spent on the visit: 30m. Past Medical History Past Medical History: No Reported History History of Any Multi-Drug Resistant Organisms: None Reported Past Surgical History: Section, Tubal Ligation Additional Past Surgical History / Comment(s): D&C Past Anesthesia/Blood Transfusion Reactions: No Reported Reaction Past Psychological History: No Psychological Hx Reported Smoking Status: Never smoker Past Alcohol Use History: Occasional Past Drug Use History: None Reported Medications and Allergies Home Medications Medication Instructions Recorded Confirmed Type HYDROcodone/APAP 7.5-325MG [[place] 1 tab PO Q6HR PRN 3 Days #12 tab 08/24/24 08/25/24 Rx 7.5-325] Ketorolac [Toradol] 10 mg PO Q6HR PRN #12 tab 08/24/24 08/25/24 Rx Ascorbic Acid [Vitamin C] 1,000 mg PO DAILY 08/25/24 08/25/24 History Cholecalciferol (Vitamin D3) 50 mcg PO DAILY 08/25/24 08/25/24 History [Vitamin D3 (50 Mcg = 2000 Iu)] Cyanocobalamin (Vitamin B-12) 1,000 mcg PO DAILY 08/25/24 08/25/24 History [Vitamin B-12] Inulin/Chromium Picolinate [Fiber 1 tab PO DAILY 08/25/24 08/25/24 History Gummies Chew] L.acidoph,Paracasei, B.lactis 1 cap PO DAILY 08/25/24 08/25/24 History [Probiotic] Lidocaine 5% Patch [Lidoderm] 1 patch TOPICAL DAILY 08/25/24 08/25/24 History Red Yeast Rice 600 mg PO DAILY 08/25/24 08/25/24 History methocarbamoL [Robaxin] 500 mg PO BID 08/25/24 08/25/24 History predniSONE See Taper PO DIRECTED 08/25/24 08/25/24 History Allergies Allergy/AdvReac Type Severity Reaction Status Date / Time morphine AdvReac Itching Verified 08/25/24 19:21 Results - Labs Labs: Abnormal Lab Results - Last 24 Hours (Table) 08/25/24 08/25/2408/26/24 Range/Units 16:28 16:28 04:42 RBC 3.80 L (4.10-5.20) X 10*6/uL Hct 36.7 L (37.2-46.3) % Plt Count 146 L 133 L (150-450) k/uL MPV 12.6 H (9.5-12.2) FL Lymphocytes # 0.8 L 0.38 L (1.0-4.8) k/uL Monocytes # 0.06 L (0.20-1.00) X 10*3/uL Eosinophils # 0 L (0.04-0.35) X 10*3/uL BUN 22 H (7-17) mg/dL BUN/Creatinine Ratio (12.00-20.00) Ratio Glucose 115 H (74-99) mg/dL AST 40 H (14-36) U/L 08/26/24 Range/Units 04:42 RBC (4.10-5.20) X 10*6/uL Hct (37.2-46.3) % Plt Count (150-450) k/uL MPV (9.5-12.2) FL Lymphocytes # (1.0-4.8) k/uL Monocytes # (0.20-1.00) X 10*3/uL Eosinophils # (0.04-0.35) X 10*3/uL BUN (7-17) mg/dL BUN/Creatinine Ratio 28.33 H (12.00-20.00) Ratio Glucose 147 H (74-99) mg/dL AST (14-36) U/L H & H 08/25/24 08/26/24 Range/Units 16:28 04:42 Hgb 13.9 12.1 (11.4-16.0) gm/dL Hct 42.5 36.7 L (34.0-46.0) % Coagulation 08/25/24 Range/Units 16:28 INR 1.0 (<1.2) Result Diagrams: 08/26/24 04:42 08/26/24 04:42
[2024-08-27] MEDS: diphenhydrAMINE 50 MG/ML 1 ML VIAL IVP PRN (00:46)
[2024-08-27] MEDS ORDERED: HYDROcodone/APAP 5-325MG 1 EACH TAB PO PRN (08:24)
[2024-08-27] MEDS ORDERED: HYDROmorphone 0.5 MG/0.5 ML SYRINGE IVP PRN (08:27)
[2024-08-27] MEDS: IV FLUID CONTINUATION 1,000 ML IV ONE ×2 (08:41)
[2024-08-27] MEDS: ONDANSETRON 4 MG/2 ML VIAL IVP PRN (08:47)
[2024-08-27] MEDS: LACTATED RINGERS 1,000 ML BAG IV STA (08:48)
--- NOTE | 2024-08-27 08:48 | P.PN ---
Progress Note - Text Progress Note Date: 08/27/24 Spine Surgery Clinical and Risk Review Nga Perea is a 49 yo female presenting for evaluation of RLE pain, weakness, low back pain. It was my pleasure to have seen and examined Nga Perea. In our visit today we have had a chance to go over subjective complaints, physical examination findings and treatments including the natural course history without intervention and various interventional options. The patients imaging demonstrates large L5-S1 disc herniation with extrusion paracentral on the right side. 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 NO fracture or lesions. . On physical exam, Nga Perea demonstrates +SLR on the RIGHT with severe tensioning and radiculopathy. Pain in the low back. 4/5 PF on the right compared to left. FHL 4/5. 4+/5 DF but with tensioning so limited. all others tested 5/5 UE and LE. DTR 2/4. Distal pulses 2/4. Neg hoffmans, clonus and babinski. I have explained to the patient that as their condition progresses it will cause further neurological deficits and eventual paralysis. Based on the patients imaging, physical exam, and the rapid progression and disabling nature of their symptoms, at this time I recommend surgery in the form or a: L5-S1 LAMINOFORAMINOTOMY WITH MICRODISCECOMTY RIGHT. I discussed the risk and benefits of this procedure at length with Nga Perea. The patient and mother and spouse agreed to considered pursuing the procedure abovementioned. Prior to surgery, she should follow up with her PCP (Cardio, ID, IM etc) for clearance. Questions were invited and answered, and the patient wishes to proceed as outlined below. Currently, I am recommendin. L5-S1 LAMINOFORAMINOTOMY WITH MICRODISCECOMTY RIGHT. 2. Follow up with PCP for surgical clearance 3. Review of surgical risks and benefits as well as an educational packet on the proposed surgical procedure. Risks: All surgical procedures come with inherent risks, including those related to positioning, anesthesia, intraoperative findings, and postoperative complications. It is important to understand that surgery does not come with any guarantee of a successful outcome as complications and adverse events are always possible. The patient was given a handout in office today discussing the surgical procedure and risks associated with the intervention, both of which were discussed with the patient. These risks include but are not limited to the following: * Experiencing same, different or even worse symptoms in back, neck, arms, or legs compared to before surgery. * Requiring further surgery or other forms of treatment presently or at some time in the future at same or other levels of the intended spine surgery. * On an extreme but fortunately relatively rare basis severe complication such as blindness, stroke, heart attack, temporary and/or permanent nerve injury, paralysis, coma, or may occur, sometimes without known explanation. * Surgical complications may include but are not limited to risk of infection, fluid accumulation in the surgical dissection site, including a seroma or hematoma, that requires additional surgery, wound drainage, bleeding, new numbness or weakness, vision changes/loss, spinal fluid leakage, non-healing and/or infected incision, headaches, difficulty or inability to swallow, hoarseness, hemopneumothorax, pneumothorax, impotence, retrograde e jaculation, vaginal dryness; injury to nerves, spinal cord, blood vessels, lymphatics or other vital organs (i.e., bowel injury, injury to the great vessels); heterotopic bone formation; complications related to the hardware such as screws, rods, cages including misplaced hardware, device failure, instrumentation at the wrong spine level, hardware fracture/breakage, or hardware loosening; vertebral failure of the spinal column above or below the newly placed hardware; retained surgical instrumentations or devices and the need for further surgery. * Medical risks of the planned spine surgery include but are not limited to generalized Infections to the whole body or local areas outside of the surgical site (sepsis), heart attack, bleeding, anaphylaxis, meningitis, seizure, epilepsy, hearing loss, burn meza, laceration of the head or other areas of the body, bruising, hypersensitivity of the skin, bladder over distension; allergic reaction; shoulder injury related to positioning; fat, blood and air clots to other areas of the body like heart, lungs, brain; failure of internal organs such as lungs, kidneys, liver and excessive bleeding. If blood transfusions are necessary, note that transfusions may cause intolerance reactions such as anaphylaxis or other complex reactions. * Despite best efforts, the results of spine surgery might not heal in terms of bone, soft tissues such as skin, fascia, ligaments, and joints. Additionally, in order to achieve best possible results, spine surgery may be carried out beyond the initially planned levels and involve decompression, fusion including insertion of hardware at levels other than the original intended area of surgical interest change some portions of the procedure in order to ensure the best possible outcomes. * With spine surgery and spinal fusion, there are different off label uses of instrumentation (devices, implants and hardware) as well as biological substances (bone morphogenic proteins, demineralized bone matrix) as well as using extra bone from allograft sources (i.e. cadaver bone) or autograft (iliac crest bone, ribs, or the spine itself). The patient has been given information about these practices and their inherent risks and benefits. The patient has had a chance to review all the listed information, has been given print outs detailing this information, and has had all his/her questions answered to their satisfaction. It was my pleasure to have seen and examined Nga Perea. In our visit today we have had a chance to go over my understanding of our patient's current condition, the natural course history without intervention and various interventional options. Questions were invited and answered, and the patient wishes to proceed as outlined above. I have seen and examined the patient for 25 minutes and we have spent more than 50% of the time in repeat and detailed counseling about the patient's condition, its natural course history with out and as much as can be predicted with surgery and re-review of various surgical treatment options. In conclusion, Nga Perea and mother and spouse requested we proceed with the above suggested surgery and are willing to accept risks and limitations of the suggested surgery as nature of the disease process and our best attempts at treatment for the condition. Thank you again for allowing us to be part of your patient's care. Please don't hesitate to contact me if you have any further questions. Signed and authenticated by: Aram Bolanos [facility] [address], [address] [address]
[2024-08-27] MEDS ORDERED: PROPOFOL 10 MG/ML 20 ML VIAL IV ONE (09:08)
[2024-08-27] MEDS ORDERED: fentaNYL (PF) 50 MCG/ML 2 ML AMP ONE (09:08)
[2024-08-27] MEDS ORDERED: TRANEXAMIC 1,000 MG/100ML-NACL PREMIX BAG ONE (09:08)
[2024-08-27] MEDS ORDERED: GLYCOPYRROLATE 0.2 MG/ML 2 ML VIAL ONE (09:08)
[2024-08-27] MEDS ORDERED: LIDOCAINE 1% INJ 10MG/ML (20 ML MDV) ONE (09:08)
[2024-08-27] MEDS ORDERED: NEOSTIGMINE 1 MG/ML 10 ML VIAL ONE (09:08)
[2024-08-27] MEDS ORDERED: KETOROLAC 15 MG/ML 1 ML VIAL ONE (09:08)
[2024-08-27] MEDS ORDERED: SUCCINYLCHOLINE CHLORIDE 200 MG/10 ML VIAL IV ONE (09:08)
[2024-08-27] MEDS ORDERED: LIDOCAINE 4% LTA KIT (4 ML) TOPICAL ONE (09:08)
[2024-08-27] MEDS ORDERED: MIDAZOLAM 2 MG/2 ML VIAL ONE (09:08)
[2024-08-27] MEDS ORDERED: ROCURONIUM 10 MG/ML (5 ML VIAL) IV ONE (09:08)
[2024-08-27] MEDS: LACTATED RINGERS 1,000 ML IV ONE ×2 (09:12)
[2024-08-27] MEDS: BUPIVACAINE (PF) 0.5% 30 ML VIAL SQ ONE (09:34)
[2024-08-27] MEDS: LIDOCAINE 2%-EPI 1:100,000 20 ML VIAL SQ ONE (09:34)
[2024-08-27] MEDS: THROMBIN (BOVINE) 5,000 UNIT VIAL MISCELLANE ONE (09:49)
[2024-08-27] MEDS: methylPREDNISolone ACETATE 40 MG/ML 1 ML VIAL MISCELLANE ONE (10:21)
--- NOTE | 2024-08-27 11:16 | FL ---
EXAMINATION TYPE: FL guidance operating room, XR lumbar spine 2 or 3V DATE OF EXAM: 08/27/2024 10:41 AM COMPARISON: Pre Operative Images if available both CT/MRI or plain film CLINICAL INDICATION: Female, 49 years old with history of L5-S1 Discectomy; TECHNIQUE: FL guidance operating room, XR lumbar spine 2 or 3V, multiple fluoroscopic images provided for procedure. Total [id number] time: 14 seconds Total submitted images to PACS: 5 DAP: 2.9564 mGym2 Gycm2 uGym2 cGycm2 or equivalent. FINDINGS: Fluoroscopic images during surgery. . Multilevel degeneration changes of the spine. No evidence of fr acture. No immediate complication identified. IMPRESSION: 1. No evidence for intraoperative complication. 2. Please see the operative/procedural note for further details. [facility], , 08/27/2024 11:14 AM
[2024-08-27] MEDS: TRANEXAMIC ACID 1,000 MG in SODIUM CHLORIDE 0.9% 100 ML IVPB ONE (11:30)
[2024-08-27] MEDS: CYCLOBENZAPRINE 5 MG TAB PO PRN (11:41)
[2024-08-27] MEDS: KETOROLAC 15 MG/ML 1 ML VIAL IVP SCH (11:41)
--- NOTE | 2024-08-27 15:29 | P.OP ---
Date of Procedure: 08/27/24 Preoperative Diagnosis: 1. L5-S1 HNP WITH DISC EXTRUSION WITH SEVERE CENTRAL AND FORAMINAL STENOSIS 2. RLE RADICULOPATHY 3. RLE WEAKNESS 4. LOW BACK PAIN Postoperative Diagnosis: 1. L5-S1 HNP WITH DISC EXTRUSION WITH SEVERE CENTRAL AND FORAMINAL STENOSIS 2. RLE RADICULOPATHY 3. RLE WEAKNESS 4. LOW BACK PAIN Procedure(s) Performed: 1. L5-S1 LAMINOFORAMINOTOMY WITH MICRODISCECTOMY (73038) USE OF IO MICROSCOPE Implants: NONE Anesthesia: GETA Surgeon: Aram Ricardo Blow Moulding Machine Operator #1: Sury Alexander (WAS PRESENT AND ASSISTED WITH ALL ASPECTS OF THE CASE FROM POSITION TO DRESSING PLACEMENT) Estimated Blood Loss (ml): 25 IV fluids (ml): 1,200 Urine output (ml): 0 Pathology: none sent Condition: stable Disposition: PACU Indications for Procedure: Nga Perea is a 49 yo female presenting for evaluation of RLE pain, weakness, low back pain. It was my pleasure to have seen and examined Nga Perea. In our visit today we have had a chance to go over subjective complaints, physical examination findings and treatments including the natural course history without intervention and various interventional options. The patients imaging demonstrates large L5-S1 disc herniation with extrusion paracentral on the right side. 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 NO fracture or lesions. . On physical exam, Nga Perea demonstrates +SLR on the RIGHT with severe tensioning and radiculopathy. Pain in the low back. 4/5 PF on the right compared to left. FHL 4/5. 4+/5 DF but with tensioning so limited. all others tested 5/5 UE and LE. DTR 2/4. Distal pulses 2/4. Neg hoffmans, clonus and babinski. I have explained to the patient that as their condition progresses it will cause further neurological deficits and eventual paralysis. Based on the patients imaging, physical exam, and the rapid progression and disabling nature of their symptoms, at this time I recommend surgery in the form or a: L5-S1 LAMINOFORAMINOTOMY WITH MICRODISCECOMTY RIGHT. I discussed the risk and benefits of this procedure at length with Nga Perea. The patient and mother and spouse agreed to considered pursuing the procedure abovementioned. Prior to surgery, she should follow up with her PCP (Cardio, ID, IM etc) for clearance. Questions were invited and answered, and the patient wishes to proceed as outlined below. Currently, I am recommendin. L5-S1 LAMINOFORAMINOTOMY WITH MICRODISCECOMTY RIGHT. Description of Procedure: L5-S1 right Microdisc (MIS) The patient was seen and examined in the preoperative area. All preoperative protocols were followed. Informed consent was obtained, risks and benefits of the procedure were discussed at length. Risks including bleeding infection damage to the surrounding tissue and risk of reoperation were discussed with the patient. Risk of anesthesia up to and including was discussed with the patient. These are outlined in the risk review. They were willing to accept these risks and all the risks of surgery. The patient was given a weight-based dose of antibiotics in the form of 2 g Ancef. The patient was seen and evaluated by the anesthesia team who deemed them fit for surgery. The site was marked, the patient was willing to proceed with the procedure. The patient was transferred to the operative suite by the Department of anesthesia. They were then drifted off to sleep by the department anesthesia and GETA was performed. The patient tolerated this well. Snyder catheter was placed by nursing staff, a-traumatically. Once confirmation of lines and ventilation the patient was transferred to a prone Lane table very carefully. All bony prominences including wrists, elbows, axilla, chest, hips, and thighs, and feet were padded very well. Special attention was paid to the genitalia, and these were padded accordingly. SCDs were placed on bilateral lower extr emities and were connected. Arms were well padded and placed on arm boards up and out in the 90/90 position. Once in position, again we confirmed good ventilation capabilities and that lines were running appropriately. The patients Lumbar spine was then exposed. 1010s were placed outlining the incision site. Standard alcohol was used to clean the incision site and allowed to dry. C-arm was used to needle localize the pedicles at L5-S1 and bio-samina the patient and confirm level for incision which was marked with a skin marker. Operative briefing was performed with all teams and everyone in agreement to proceed. The patient was then prepped and draped in a normal sterile fashion. Timeout was then performed, and all parties agreed with the procedure to be performed. Skin incision was made over the previously marked area. Fluoroscopy was then used to target the lamina and facet joints on the right hand side of L5-S1 and initial dilator for tubular retractor system was used to identify this area. Once in a good position, sequential dilation was taken up to 26 mm and tube selected. A 60 mm tube was then placed and secured to the table. This was confirmed to be in good position on AP and Lateral imaging. Limited myomectomy was then done to identify the lamina, interlaminar space, and facet joints. Clifford-laminotomy, partial medial facetectomy and foraminotomy were performed at L5-S1 using high speed tushar and Kerrison rongeur. The ligamentum flavum was removed with Kerrison and curette. Dura and roots protected. The disc space was identified along with the herniation. 11 blade was used to make small annulotomy and micro-pituitary used to remove loose disc fragments. Once fragments were removed, down biting curette was used to push any medial fragments down and towards the annulotomy and decompress centrally. The disc space was irrigated, and any loose fragments removed again. Bipolar was used for hemostasis and scarring of the annulotomy. The area was irrigated, and meticulous hemostasis performed. The bed was inspected, and all roots have ample room and are decompressed along with the dura. There were no injuries. Retractors were then removed. The wound was copiously irrigated with NSS. The deep fascia was closed with 0 PDS. Deep sub-q with 0 Vicryl and superficial with 2-0 Vicryl. Skin closed with chel. The wound edges approximated well. The wound was then cleaned, and glue tape placed on the skin and allowed to dry. It was then Covered with an Opifoam dressing. The patient was then transferred off the table back to their hospital bed a- traumatically. They were extubated by the department of anesthesia. They were then transferred to PACU in stable condition having tolerated the procedure with no complications.
[2024-08-27] MEDS: DEXAMETHASONE SOD PHOSPHATE 4 MG/ML 1 ML VIAL IVP SCH (15:49)
--- NOTE | 2024-08-27 18:10 | P.PN ---
Subjective Progress Note Date: 08/27/24 Subjective: Patient seen and examined at the bedside s/p surgery. Doing well, pain is resolved. Objective: Vital signs reviewed. General: non toxic, no distress, appears at stated age, normal weight Derm: no unusual rashes/lesions, warm Head: atraumatic, normocephalic, symmetric Eyes: EOMI, no lid lag, anicteric sclera, pupils equal round reactive to light ENT: Nose and ears atraumatic Neck: No cervical lymphadenopathy, trachea midline, supple Mouth: no lip lesion, mucus membranes moist Cardiovascular: S1S2 reg, no murmur, positive dorsalis pedis pulse bilateral, no edema Lungs: CTA bilateral, no rhonchi, no rales, no accessory muscle use Abdominal: soft, nontender to palpation, no guarding Ext: muscle strength 5 out of 5 in all 4 extremities grossly, no gross muscle atrophy, no contractures, Neuro: CN II-XI grossly intact, no gross focal neuro deficits Psych: Alert, oriented, appropriate affect Data reviewed today: Pertinent Labs: WBC 4.86, hemoglobin 12.1, platelet count 133, sodium 138, potassium 4.7, creatinine 0.6, glucose 147, calcium 9.0 Images: No new images Assessment and Plan: Nga Perea is a 49-year-old female with no medical history presenting with back pain. Spoke with the ER physician and admission was accepted by internal medicine for treatment of back pain and right leg radiculopathy. #Back pain refractory to conservative measures #Right leg radiculopathy secondary to lumbosacral disc herniation #History of right sciatica Lumbar spine CT and abdominal CT with findings of no spinal fracture, L5-S1 disc extrusion with displacement of the exiting nerve Lumbar spine MRI shows disc extrusion at L5-S1 and disc sequestration at L4-L5 Continue Dilaudid 1 mg IVP as needed q3hr for severe pain Continue with gabapentin 400 mg BID Continue dexamethasone 4 mg IVP every 6 hour Orthopedic surgery consulted for radiculopathy, s/p L5-S1 Laminoforaminotomy with microdiscectomy. F: P.o. E: Replete as needed N: Regular diet DVT ppx: Subq Lovenox 40 meq daily Code status: Full code Anticipated discharge place: Home Anticipated discharge time: Less than 2 days Objective - Vital Signs Vital signs: Vital Signs Temp 98.4 F 08/27/24 14:06 Pulse 62 08/27/24 14:06 Resp 16 08/27/24 14:06 BP 117/73 08/27/24 14:06 Pulse Ox 96 08/27/24 14:06 FiO2 Intake & Output 08/26/24 08/27/24 08/27/24 19:59 06:59 18:59 Intake Total 1000 Output Total 25 Balance 975 Intake: IV 1000 Output: Estimated Blood Loss 25 Other: Voiding Method # Voids 2 - Labs CBC & Chem 7: 08/26/24 04:42 08/26/24 04:42
[2024-08-27 21:41] VITALS: RESP 17
[2024-08-27] MEDS: HYDROcodone/APAP 7.5-325MG 1 EACH TAB PO PRN (23:22)
[2024-08-28 07:29] VITALS: BP 108/55; PULSE 78; TEMP 98.4
[2024-08-28 08:19] LABS: Basophils # (A) 0 X 10*3/uL (0.00-0.10); Basophils % (A) 0 %; Eosinophils # (A) 0 X 10*3/uL (0.04-0.35); Eosinophils % (A) 0 %; HCT 35.2 % (37.2-46.3); HGB 11.7 g/dL (12.0-15.0); Lymphocytes # (A) 0.45 X 10*3/uL (0.90-5.00); Lymphocytes % (A) 6.7 %; MCH 31.5 pg (27.0-32.0); MCHC 33.2 g/dL (32.0-37.0); MCV 94.6 FL (80.0-97.0); Mean Platelet Volume 12.4 FL (9.5-12.2); Monocytes # (A) 0.28 X 10*3/uL (0.20-1.00); Monocytes % (A) 4.2 %; NRBC Per 100 WBC 0 X 10*3/uL (0.00-0.01); Neutrophils # (A) 5.96 X 10*3/uL (1.80-7.70); Neutrophils % (A) 88.8 %; Platelet Count 139 X 10*3/uL (140-440); RBC 3.72 X 10*6/uL (4.10-5.20); RDW 12.4 % (11.5-14.5); WBC 6.71 X 10*3/uL (4.50-10.00)
[2024-08-28 08:34] LABS: Calcium 8.9 mg/dL (8.7-10.3); Carbon Dioxide 24.9 mmol/L (21.6-31.8); Chloride 103 mmol/L (96-109); Glucose 139 mg/dL (70-110); Potassium 4.7 mmol/L (3.5-5.5); Sodium 137 mmol/L (135-145)
--- NOTE | 2024-08-28 10:27 | P.PN ---
Subjective Progress Note Date: 08/28/24 Principal diagnosis: L5-S1 HNP RLE radiculopathy Patient seen and examined this morning. Patient is resting comfortably in bed. Patient does report improvement of her radiculopathy into the right lower extremity since the procedure. Patient does state that she continues to have numbness to the lateral right calf into her foot. Discussed with her that it may take time due to the pressure on the nerve. Patient verbalizes understanding. Prescription for rolling walker and reach tube worker has been placed in chart. Patient is looking forward to discharge. Patient is cleared from a orthopedic standpoint for discharge. Objective - Vital Signs Vital signs: Vital Signs Temp 98.1 F 08/28/24 00:45 Pulse 57 L 08/28/24 00:45 Resp 17 08/28/24 00:45 BP 100/52 08/28/24 00:45 Pulse Ox 93 L 08/28/24 00:45 FiO2 Intake & Output 08/27/24 08/27/24 08/28/24 06:59 18:59 06:59 Intake Total 1000 Output Total 25 Balance 975 Intake: IV 1000 Output: Estimated Blood Loss 25 Other: # Voids 1 - Exam Physical Examination General: The patient is awake and alert, in no acute distress Skin: Skin is warm and dry with no obvious rashes or lesions. Surgical incision to the right lateral lumbar spine, surgical dressing is clean dry and intact. Eye: Pupils are equal, round and reactive to light, extra-ocular movements are intact; there is normal conjunctiva bilaterally. Neck: The neck is supple, there is no tenderness and ROM intact. Cardiovascular: There is a regular rate and rhythm. No murmur, rub or gallop is appreciated. Respiratory: Respirations are non-labored, breath sounds are equal. Gastrointestinal: Soft, non-distended, non-tender abdomen. Back: There is no tenderness to palpation in the midline, paralumbar, parathoracic or buttocks region. There is no obvious deformity . Musculoskeletal: ROM limited secondary to pain and stiffness from surgical procedure. Right: Shoulder abduction 5/5, elbow flexors 5/5, wrist dorsiflexors 5/5. finger abductor 5/5, mold maker plastic molds 5/5, hip flexor 4/5, knee flexor 4/5, ankle dorsiflexor 4/5, ankle plantarflexion 4/5 and extensor hallucis 5/5. Left: Shoulder abduction 5/5, elbow flexors 5/5, wrist dorsiflexors 5/5. finger abductor 5/5, mold maker plastic molds 5/5, hip flexor 5/5, knee flexor 5/5, ankle dorsiflexor 5/5, ankle plantarflexion 5/5 and extensor hallucis 5/5. Neurological: CN 2-12 intact. There are no obvious motor or sensory deficits. Movement and coordination equal and intact. Sensory exam to light touch intact C5-T1 and intact from L2-S1. Reflexes 2/4 in bilateral upper and lower extremities. Negative Hoffmans, babinski, and clonus signs. Psychiatric: Cooperative, appropriate mood & affect, normal judgment. - Labs CBC & Chem 7: 08/28/24 03:25 08/28/24 03:25 Assessment and Plan Assessment: Postop day 1: L5-S1 minimally invasive laminoforaminotomy with microdiscectomy Plan: -Appreciate application development consultant and team management. -Activity: Ambulate QID, OOB all meals, up and about, limit lifting bending twisting to less than 5 lbs. Use walker or cane if needed for stability. -Daily PT/OT, increase ambulation strength and balance. -Prescription for rolling walker and reach tube worker placed in chart -Pain control: Adequate at this time -Meds: reviewed -GI ppx: senna, Miralax -DVT PPX: Aspirin -Hygiene: Shower today. Maintain dressing clean and dry. Meticulous cleaning after BMs away from the incision site -Encourage IS 10x/hr -Dispo: Patient is cleared from orthopedic standpoint. Discharge instructions have been reviewed and discussed. Anticipate discharge home today *I reviewed and discussed this case with my attending Dr. Ricardo, whom has reviewed this chart and films and is in agreement with assessment and plan of care as outlined above. I have personally seen and examined the patient, performed the documentation and the assessment and plan as written. Number of minutes spent on the visit: 20m.
[2024-08-28 11:34] LABS: Phosphorus 3.6 (2.4-5.1)
--- NOTE | 2024-08-28 13:37 | P.DS ---
Providers Date of admission: 08/25/24 19:06 Attending physician: Nain Sheehan MD Consults: 08/25/24 18:59 Consult Physician Routine Consulting Provider: Aram Ricardo Consult Reason/Comments: radiculopathy Do you want consulting provider notified?: Yes Primary care physician: Samy Wall MD Hospital Course: Discharge Diagnosis: #Right leg radiculopathy secondary to lumbosacral disc herniation s/p L5-S1 Laminoforaminotomy with microdiscectomy. #Back pain refractory to conservative measures #History of right sciatica Hospital Course: Nga Perea is a 49-year-old female with no medical history presenting with worsening back pain. Labs showed WBC 5.8, hemoglobin 13.9, PT 11.3, INR 1.0, APTT 23.9, sodium 137, potassium 4.9, creatinine 0.56, calcium 9.4. Lumbar spine CT and abdominal CT with findings of no spinal fracture, L5-S1 disc extrusion with displacement of the exiting nerve. Lumbar spine MRI shows disc extrusion at L5-S1 and disc sequestration at L4-L5. Orthopedic surgery was consulted. L5-S1 laminoforaminotomy with microdiscectomy was performed. No postop complications. Patient saw drastic improvement in her symptoms. Patient medically optimized to be discharged. Patient to follow-up with orthopedic surgery and PCP outpatient. Discharge instruction: New medication: Flexeril 5 mg p.o. 3 times daily as needed, [place] 7.53 25 1 tab p.o. every 4-6 hour as needed, Diflucan 150 mg p.o. daily, and Medrol Dosepak. Patient to continue with her home medications as directed. Patient provided with instruction on lumbar disc herniation, acute low back pain, lumbar radiculopathy Vital signs reviewed. General: non toxic, no distress, appears at stated age, normal weight Derm: no unusual rashes/lesions, warm Head: atraumatic, normocephalic, symmetric Eyes: EOMI, no lid lag, anicteric sclera, pupils equal round reactive to light ENT: Nose and ears atraumatic Neck: No cervical lymphadenopathy, trachea midline, supple Mouth: no lip lesion, mucus membranes moist Cardiovascular: S1S2 reg, no murmur, positive dorsalis pedis pulse bilateral, no edema Lungs: CTA bilateral, no rhonchi, no rales, no accessory muscle use Abdominal: soft, nontender to palpation, no guarding Ext: muscle strength 5 out of 5 in all 4 extremities grossly, no gross muscle atrophy, no contractures, Neuro: CN II-XI grossly intact, no gross focal neuro deficits Psych: Alert, oriented, appropriate affect I saw and evaluated the patient during the cervantes and critical portions of this encounter, and discussed the case in detail with the resident author of this note, I agree with the Assessment and Plan, and my changes, if any, are highlighted in blue. Patient Condition at Discharge: Fair Plan - Discharge Summary Discharge Rx Participant: No New Discharge Prescriptions: New Cyclobenzaprine [Flexeril] 5 mg PO TID PRN #40 tablet PRN Reason: Muscle Spasm HYDROcodone/APAP 7.5-325MG [[place] 7.5-325] 1 tab PO Q4-6H PRN #40 tab PRN Reason: Pain Fluconazole [Diflucan] 150 mg PO DAILY #2 tab methylPREDNISolone Dose Pack [Medrol Dose Pack] 4 mg PO DIRECTED #1 packet Continue Ketorolac [Toradol] 10 mg PO Q6HR PRN #12 tab PRN Reason: Pain Ascorbic Acid [Vitamin C] 1,000 mg PO DAILY Inulin/Chromium Picolinate [Fiber Gummies Chew] 1 tab PO DAILY Cholecalciferol (Vitamin D3) [Vitamin D3 (50 Mcg = 2000 Iu)] 50 mcg PO DAILY methocarbamoL [Robaxin] 500 mg PO BID Red Yeast Rice 600 mg PO DAILY Cyanocobalamin (Vitamin B-12) [Vitamin B-12] 1,000 mcg PO DAILY L.acidoph,Paracasei, B.lactis [Probiotic] 1 cap PO DAILY Discontinued HYDROcodone/APAP 7.5-325MG [[place] 7.5-325] 1 tab PO Q6HR PRN 3 Days #12 tab PRN Reason: Pain Lidocaine 5% Patch [Lidoderm] 1 patch TOPICAL DAILY predniSONE See Taper PO DIRECTED Discharge Medication List Ketorolac [Toradol] 10 mg PO Q6HR PRN #12 tab 08/24/24 [Rx] Ascorbic Acid [Vitamin C] 1,000 mg PO DAILY 08/25/24 [History] Cholecalciferol (Vitamin D3) [Vitamin D3 (50 Mcg = 2000 Iu)] 50 mcg PO DAILY 08/25/24 [History] Cyanocobalamin (Vitamin B-12) [Vitamin B-12] 1,000 mcg PO DAILY 08/25/24 [History] Inulin/Chromium Picolinate [Fiber Gummies Chew] 1 tab PO DAILY 08/25/24 [History] L.acidoph,Paracasei, B.lactis [Probiotic] 1 cap PO DAILY 08/25/24 [History] Red Yeast Rice 600 mg PO DAILY 08/25/24 [History] methocarbamoL [Robaxin] 500 mg PO BID 08/25/24 [History] Cyclobenzaprine [Flexeril] 5 mg PO TID PRN #40 tablet 08/28/24 [Rx] Fluconazole [Diflucan] 150 mg PO DAILY #2 tab 08/28/24 [Rx] HYDROcodone/APAP 7.5-325MG [[place] 7.5-325] 1 tab PO Q4-6H PRN #40 tab 08/28/24 [Rx] methylPREDNISolone Dose Pack [Medrol Dose Pack] 4 mg PO DIRECTED #1 packet 08/28/24 [Rx] Follow up Appointment(s)/Referral(s): Samy Wall MD [Primary Care Provider] - 1-2 days (office not answering Please call to schedule appointment ) Aram Ricardo DO [Doctor of Osteopathic Medicine] - 09/13/24 11:30 am Patient Instructions/Handouts: Lumbar Disc Herniation (DC), Acute Low Back Pain (ED), Lumbar Radiculopathy (GEN) Activity/Diet/Wound Care/Special Instructions: Spine Discharge and Recovery Instructions Date of Surgery: 08/27/2024 Diagnosis: L5-S1 HNP with stenosis Procedure: L5-S1 minimally invasive laminoforaminotomy with microdiscectomy Medications: See medication list All medication refills should be obtained through your primary care doctor or your clinic spine surgeon. Please discuss prescription refills at your follow up appointment. Do not call the hospital for medication refills. Activity: Encourage ambulation with assist of walker, Up and about 6-8x daily PT/OT daily work on balance, strength and mobility Up in chair with all meals Shower daily Brace: Use brace when up and about, do not wear in bed or shower Dressing: Leave your dressing in place for a total of 3 days post operatively. Then you may remove your dressing and leave open to air. Keep the area clean and if not able to keep area clean, then cover with sterile gauze and tape. Showering: You may shower 3 days after your procedure allowing soap and water to run over incision. Do not scrub. Do not soak. Blot dry. Follow up: Please confirm a follow up appointment with your surgeon 2 weeks post operatively. Please make an appointment to follow up with your PCP in 1-2 weeks after surgery for evaluation '3 phase, 3-week plan' POST OP WEEKS 1-3 1. Lifting/carrying/pushing/pulling limited to less than 5 pounds. 2. Do not sit for longer than 15 minutes at one time. Get up and walk around. Prolonged sitting is NOT advised. If you lay down, see if you can tolerate laying down on you front (belly side) 3. Walk for periods of 15 minutes = 1 mile but no longer; do it multiple times times each day. 4. Ice your low back after activity. POST OP WEEKS 3-6 1. Lifting limited to less than 20 pounds. 2. Do not sit for longer than 30 minutes at a time. Frequently change positions. Use a sit-to stand workstation or take frequent breaks from sitting if you have returned to work. 3. Walk for 30 minutes each day. If possible, do these three or more times a day POST OP WEEKS 6+ At your 6-week appointment we will give you a physical therapy referral to focus on a core stabilization and strengthening program. You should also work on leg & buttock strengthening, hamstring & quadriceps stretching, and continue a low impact aerobic activity program such as swimming, walking, or riding a stationary bicycle. During the initial 6 weeks after your surgery, you are at the highest risk of re-injuring your spine. You should generally avoid BLT's (bending, lifting and twisting combination motions) and follow the above guidelines to reduce the chance of reinjury. You can anticipate post op appointments in our office at approximately 3 weeks and 6 weeks after your surgery. INCISION CARE: If your incision is not draining you do NOT need to cover it with a dressing. Keep your incision clean, dry and intact. In most cases, we apply skin glue, chel or sutures to the incision at the time of surgery. This will be like a crust or have the appearance of a scab and will fall off in time on its own. The stitches or chel need to be removed at 3 weeks post op appointment. You may begin to shower 3 days after surgery (this allows the glue to rodriguez well). However, please avoid scrubbing the incision site or peeling off any of the skin glue. This will ensure optimal healing of your incision. Also, during this time avoid soaking the incision area in water - this includes swimming pools, hot tubs or baths. No ointments, lotions or oils on the incision until your surgeon allows. Leave chel, sutures or glue in place. Neurological dysfunction that comes on suddenly can also be a sign of a stroke. Below some common symptoms of a stroke are listed: B - balance difficulty such as sudden onset walking or leaning to one side - NEW E - eye problem such as sudden double vision or trouble seeing on one side - NEW F - Facial weakness or numbness on one side - NEW A - Arm or leg weakness or numbness on one side - NEW S - Slurred speech or difficulty with word finding - NEW T - Time is BRAIN! Call 911 as soon as you recognize these symptoms Diet: Consume a regular diet rich in vegetables and lean protein such as chicken or fish. You should consume in a ratio of approximately 20% fats|40% carbohydrates|40%protein. Vegetables, sweet potatoes, brown rice or quinoa are examples of good carbohydrates. Chips, white bread, cookies and sweets/sugar are examples of bad carbohydrates. Limit your bad carbs, go wild with good carbs. "Life's Simple 7" Guidelines as per [place] [employer] These will help you reclaim your life after surgery and liner helper in your recovery, keeping in mind your restrictions. (1) Get Active. Physical activity can help people lose weight, control high blood pressure and cholesterol, feel emotionally better, and sleep better. (2) Control Cholesterol. Avoid a diet high in saturated fat, trans fat, & cholesterol. Limit whole milk & cream, ice cream, butter, egg yolks, processed meats (like sausage and hot dogs), and fatty meats. Choose healthy foods that are low in saturated fat, trans fat and cholesterol which include: Fruits and vegetables, fiber rich grain products (like whole grain pasta and brown rice), lean meat such as chicken, fish, nuts, seeds, and legumes. (3) Eat Better. Eat small portions. Shop at the grocery with a list and do not stray from it. Tips for a healthy diet include: Limit sodium intake to less than 1500mg daily, avoid prepackaged, processed, and fast foods, choose a diet rich in fruits, vegetables, and whole grain, high fiber foods, and limit saturated & cholesterol in your diet. (4) Manage Blood Pressure. If you have high blood pressure, you should have a cuff at home so that you can check your blood pressure regularly. Be sure you have a good cuff. An arm one is generally better than a wrist one. Bring the cuff to a doctor's appointment to validate that the measurements that your cuff are taking are accurate. Take your blood pressure twice daily when you are sitting down and relaxing. Record the numbers in a log and bring this log with you to your doctors' appointments. (5) Lose Weight if your BMI is above 25. A healthy BMI is between 19-25. To calculate Your BMI, you may use a Standard BMI Calculator on the NIH BMI website: <www.nhlbi.nih.gov/guidelines/obesity/BMI/bmicalc.htm>. Weigh oneself daily. If you are overweight, set a goal to lose weight. A pound a week loss if needed is a good target. (6) Reduce Blood Sugar. Limit foods and liquids with "added sugars." (Added sugars include sucrose, fructose, glucose, maltose, dextrose, high fructose corn syrup, corn syrup, concentrated fruit juice and honey). (7) Stop Smoking. If you smoke, quitting smoking is one of the best things that you can do for your health. Smoking increases your risk of heart attack, stroke, and peripheral vascular disease, which is a build-up of plaque in your arteries. Please discard all the cigarettes and lighters in your house. Have a plan for what you will do when you have the urge to smoke. Direct and second- hand smoke shortens your life as well as the lives of your family, friends and others around you. For your health and the health of those around you, please consider quitting! Proper Bending Body Mechanics: Maintain a wide stance with one foot slightly in front of the other. Keep your back straight. Bend utilizing the strength in your hips and knees. Do not bend at the waist. Maintain the lifted object at your waist-level close to your body. Avoid lifting weight that causes immediately pain or pain anywhere in the body afterwards. Smoking/Nicotine If there was ever one thing that you could do to increase your overall health, decrease your risk of cardiovascular problems by about 39% the second you make the choice, it is to STOP SMOKING. Your body's most instant gratification is the second you stop smoking. We have all heard the studies, read the articles but it is true, smoking is extremely bad for your overall health, and moreover it is detrimental to your bone health. Nicotine, IN ANY FORM, kills bone cells, prevents your body from healing fractures, and significantly prolongs healing after surgery. In spine surgery specifically, it increases your risk of not healing your bones to create a fusion and increases your risk of having a revision surgery due to this up to 60%. I know it is hard. I know it feels impossible. But there are ways. Take control of your life. We are here to help you through it. And when you are ready, ask us and we can direct you to help if you desire. Use the START Plan to Quit Smoking (please visit the Helpguide.org website listed below for more information): S = Set a quit date. Choose a date within the next 2 weeks, so you have enough time to prepare without losing your motivation to quit. If you mainly smoke at work, quit on the weekend, so you have a few days to adjust to the change. T = Tell family, friends, and co-workers that you plan to quit. Let your friends and family in on your plan to quit smoking and tell them you need their support and encouragement to stop. Look for a quit mesha who wants to stop smoking as well. You can help each other get through the rough times. A = Anticipate and plan for the challenges you'll face while quitting. Most people who begin smoking again do so within the first 3 months. You can help yourself make it through by preparing ahead for common challenges, such as nicotine withdrawal and cigarette cravings. R = Remove cigarettes and other tobacco products from your home, car, and work. Throw away all your cigarettes (no emergency pack!), lighters, ashtrays, and matches. Wash your clothes and freshen up anything that smells like smoke. Shampoo your car, clean your drapes and carpet, and steam your furniture. T = Talk to your doctor about getting help to quit. Your doctor can prescribe medication to help with withdrawal and suggest other alternatives. If you can't see a doctor, you can get many products over the counter at your local pharmacy or grocery store, including the nicotine patch, nicotine lozenges, and nicotine gum. Resources for Quitting Smoking: <https://www.[place].gov/documents/[facility]/Quit_Tobacco_Resources_for_patients_313 480_7.pdf> Supplementation: Take recommended dosages of Vitamin D and Calcium to help fortify your bones and help them to heal. See your health maintenance packet for dosages and recommended levels. DVT/VTE prophylaxis: You will be given compression stockings from the hospital. Wear these daily for the first two weeks after surgery. You may take them off at night. You may be prescribed a medication to help thin your blood. Take this as directed. If you are not prescribed this medication, early and frequent ambulation has been shown to be the best prophylaxis to deep vein thrombosis and sequelae related to this event. Discharge Disposition: HOME SELF-CARE
== END 2024-08-28 14:20 | disposition home or self-care (01) ==
LOC: EC 13:59 → 6NMEDSUR 19:06 → 4SSUR 19:57
PROVIDERS: ADMIT Internal Medicine; ATTEND Internal Medicine
DX: M51.17 Intervertebral disc disorders with radiculopathy, lumbosacral region (principal); M47.27 Other spondylosis with radiculopathy, lumbosacral region; M48.07 Spinal stenosis, lumbosacral region; M51.16 Intervertebral disc disorders with radiculopathy, lumbar region; M47.26 Other spondylosis with radiculopathy, lumbar region; M48.061 Spinal stenosis, lumbar region without neurogenic claudication; Z88.5 Allergy status to narcotic agent
CPT/HCPCS: 96376 ×4; 96366 ×2; 96372; 96374; 96375 ×2; 96367; 96365; 99285; 36415; 97161; 81025 ×2; 80053 ×2; 80048; 83605; 83735; 84100; 84484; 85025 ×3; 85610; 85730; 81003; 72100; 72132; 74177; 72148; 63030; G0378 ×5; J2250; J0330; J2060; J1171 ×4; J1200 ×2; J1100 ×4; J2710; J0690; J2405; J2003; J1650; J3010; J0131; J1885 ×3; J2704; Q9967; J0665; J1596; J1010; J2470 ×3

== ENCOUNTER 2024-12-15 09:58 | Observation (INO) | payer OTHER ==
[2024-12-15] MEDS: HYDROmorphone 0.5 MG/0.5 ML SYRINGE IVP ONE (09:48)
[2024-12-15 10:34] LABS: Basophils % (A) 1 %; Eosinophils # (A) 0.1 k/uL (0-0.7); Eosinophils % (A) 3 %; HCT 37.9 % (34.0-46.0); HGB 12.8 gm/dL (11.4-16.0); Lymphocytes # (A) 0.8 k/uL (1.0-4.8); Lymphocytes % (A) 21 %; MCH 31.3 pg (25.0-35.0); MCHC 33.8 g/dL (31.0-37.0); MCV 92.5 fL (80.0-100.0); Mean Platelet Volume 8.4; Monocytes # (A) 0.3 k/uL (0-1.0); Monocytes % (A) 7 %; Neutrophils # (A) 2.5 k/uL (1.3-7.7); Neutrophils % (A) 65 %; Platelet Count 145 k/uL (150-450); RBC 4.09 m/uL (3.80-5.40); RDW 11.8 % (11.5-15.5); WBC 3.8 k/uL (3.8-10.6)
[2024-12-15] MEDS: DEXAMETHASONE SOD PHOSPHATE 10 MG/ML 1 ML VIAL IV STA (10:47)
[2024-12-15 10:51] LABS: ALT 22 U/L (4-34); AST 25 U/L (14-36); African American GFR (CKD) >90 (>60 ml/min/1.73 sqM); Albumin 5.1 g/dL (3.5-5.0); Alkaline Phosphatase 46 U/L (38-126); Anion Gap 10 mmol/L; Blood Urea Nitrogen 15 mg/dL (7-17); Carbon Dioxide 24 mmol/L (22-30); Chloride 101 mmol/L (98-107); Glucose 108 mg/dL (74-99); Non-African American GFR(CKD) >90 (>60 ml/min/1.73 sqM); Potassium 4.3 mmol/L (3.5-5.1); Sodium 135 mmol/L (137-145); Total Bilirubin 0.7 mg/dL (0.2-1.3); Total Protein 7.6 g/dL (6.3-8.2)
[2024-12-15] MEDS ORDERED: TRANEXAMIC 1,000 MG/100ML-NACL 1,000 MG in SALINE 1 100ML.BAG IVPB PRN (11:00)
--- NOTE | 2024-12-15 11:08 | ED ---
General Adult HPI - General Chief complaint: Back Pain/Injury Stated complaint: Back pain Time Seen by Provider: 12/15/24 10:05 Source: patient Mode of arrival: ambulatory Limitations: no limitations - History of Present Illness Initial comments: 49-year-old female presents emergency department with low back pain radiating into the right leg. Patient had a microdiscectomy [address] me[address]. States she felt well after the procedure. The patient then ended up having a gastroenteritis where she was violently vomiting and throughout her back again. Patient has had consistent pain. She was seen in the office on the . They sent her for an MRI on the . Patient has been taking gabapentin and Chancellor for the pain which has been minimally controlling it. She had a follow-up appointment in [place] office today. Found that the patient had a repeat L5-S1 herniation which was more significant than her past. Due to her uncontrolled pain he recommended that she come to the hospital. Patient denies any bowel or bladder incontinence. No saddle anesthesia. Admits chronic numbness in the right lower extremity however nothing worse than her chronic symptoms. No fevers. No history of intravenous drug use. No other allev iating, precipitating or modifying factors. - Related Data Home Medications Medication Instructions Recorded Confirmed Ascorbic Acid [Vitamin C] 1,000 mg PO HS 08/25/24 12/15/24 Cholecalciferol (Vitamin D3) 50 mcg PO HS 08/25/24 12/15/24 [Vitamin D3 (50 Mcg = 2000 Iu)] Cyanocobalamin (Vitamin B-12) 1,000 mcg PO HS 08/25/24 12/15/24 [Vitamin B-12] Inulin/Chromium Picolinate [Fiber 1 tab PO HS 08/25/24 12/15/24 Gummies Chew] L.acidoph,Paracasei, B.lactis 1 cap PO HS 08/25/24 12/15/24 [Probiotic] Red Yeast Rice 600 mg PO HS 08/25/24 12/15/24 D-Mannose 1 cap PO HS 12/15/24 12/15/24 Magnesium(Unknown Dose) 1 tab PO HS 12/15/24 12/15/24 Multivitamins, Thera [Multivitamin 1 tab PO HS 12/15/24 12/15/24 (formulary)] Previous Rx's Medication Instructions Recorded HYDROcodone/APAP 7.5-325MG [[place]ancellor 1 tab PO Q4-6H PRN #40 tab 08/28/24 7.5-325] Cyclobenzaprine [Flexeril] 5 mg PO TID #21 tablet 12/16/24 Ketorolac [Toradol] 10 mg PO Q6HR #24 tab 12/16/24 Sennosides/Docusate Sodium [Senna 1 each PO DAILY #20 capsule 12/16/24 Plus 8.6-50 mg Softgel] cefaDROXiL [Duricef] 500 mg PO Q12HR 5 Days #10 cap 12/16/24 Allergies Allergy/AdvReac Type Severity Reaction Status Date / Time morphine Allergy Rash/Itchin Verified 12/15/24 11:25 g Review of Systems ROS Statement: Those systems with pertinent positive or pertinent negative responses have been documented in the HPI. ROS Other: All systems not noted in ROS Statement are negative. Past Medical History Past Medical History: No Reported History History of Any Multi-Drug Resistant Organisms: None Reported Past Surgical History: Back Surgery, Section, Tubal Ligation Additional Past Surgical History / Comment(s): D&C Past Anesthesia/Blood Transfusion Reactions: No Reported Reaction Past Psychological History: No Psychological Hx Reported Smoking Status: Never smoker Past Alcohol Use History: Occasional Past Drug Use History: None Reported General Exam Limitations: no limitations General appearance: alert, in no apparent distress Head exam: Present: atraumatic, normocephalic, normal inspection Eye exam: Present: normal appearance, PERRL, EOMI. Absent: scleral icterus, conjunctival injection, periorbital swelling ENT exam: Present: normal exam, mucous membranes moist Neck exam: Present: normal inspection. Absent: tenderness, meningismus, lymphadenopathy Respiratory exam: Present: normal lung sounds bilaterally. Absent: respiratory distress, wheezes, rales, rhonchi, stridor Cardiovascular Exam: Present: regular rate, normal rhythm, normal heart sounds. Absent: systolic murmur, diastolic murmur, rubs, gallop, clicks GI/Abdominal exam: Present: soft, normal bowel sounds. Absent: distended, tenderness, guarding, rebound, rigid Extremities exam: Present: normal inspection, full ROM, normal capillary refill. Absent: tenderness, pedal edema, joint swelling, calf tenderness Back exam: Present: normal inspection, paraspinal tenderness (right lumbar region) Neurological exam: Present: alert, oriented X3, CN II-XII intact Psychiatric exam: Present: normal affect, normal mood Skin exam: Present: warm, dry, intact, normal color. Absent: rash Course Vital Signs 12/15/24 12/15/24 12/15/24 10:04 10:36 11:46 Temperature 97.8 F 98.7 F Pulse Rate 102 H 72 Respiratory 24 17 17 Rate Blood Pressure 136/95 122/87 110/72 O2 Sat by Pulse 97 100 Oximetry 12/15/24 12/15/24 14:46 15:36 Temperature 98.9 F Pulse Rate 74 72 Respiratory 16 16 Rate Blood Pressure 103/78 117/84 O2 Sat by Pulse 95 97 Oximetry Medical Decision Making - Medical Decision Making Was pt. sent in by a medical professional or institution (, PA, SURGICAL LEAD, urgent care, hospital, or [facility]...) When possible be specific @ -Dr. meyers Did you speak to anyone other than the patient for history (EMS, parent, family, police, friend...)? What history was obtained from this source @ -dr meyers Did you review nursing and triage notes (agree or disagree)? Why? @ -I reviewed and agree with nursing and triage notes Were old charts reviewed (outside hosp., previous admission, EMS record, old EKG, old radiological studies, urgent care reports/EKG's, [facility] records)? Report findings @ -No old charts were reviewed Differential Diagnosis (chest pain, altered mental status, abdominal pain women, abdominal pain men, vaginal bleeding, weakness, fever, dyspnea, syncope, headache, dizziness, GI bleed, back pain, seizure, CVA, palpatations, mental he alth, musculoskeletal)? @ -Differential Back Pain: Strain, zoster, cauda equina syndrome, epidural abscess, vertebral osteomyelitis, discitis, fracture, subluxation, disc herniation, DJD, spinal cadence nosis, dissection, AAA, pancreatitis, peptic ulcer disease, pyelonephritis, kidney stone, this is not meant to be an all-inclusive list. EKG interpreted by me (3pts min.). @ -Yes and demonstrates sinus rhythm with a rate of 67. MN interval 201. QRS 83. QTc of 402. J-point elevation 2, 3, aVF. No reciprocal changes X-rays interpreted by me (1pt min.). @ -None done CT interpreted by me (1pt min.). @ -None done U/S interpreted by me (1pt. min.). @ -None done What testing was considered but not performed or refused? (CT, X-rays, U/S, labs)? Why? @ -None What meds were considered but not given or refused? Why? @ -None Did you discuss the management of the patient with other professionals (professionals i.e. DrKacy, PA, SURGICAL LEAD, lab, RT, psych nurse, social insurance specialist, hotel dining room cashier, teacher, [employer] operations staff officer, protective services case worker)? Give summary @ -Discussed care with Dr. meyers who is admitting the patient Was smoking cessation discussed for >3mins.? @ -No Was critical care preformed (if so, how long)? @ -No Were there social determinants of health that impacted care today? How? (Homelessness, low income, unemployed, alcoholism, drug addiction, transportation, low edu. Level, literacy, decrease access to med. care, snf, rehab)? @ -No Was there de-escalation of care discussed even if they declined (Discuss DNR or withdrawal of care, Hospice)? DNR status @ -No What co-morbidities impacted this encounter? (DM, HTN, Smoking, COPD, CAD, Cancer, CVA, ARF, Chemo, Hep., AIDS, mental health diagnosis, sleep apnea, morbid obesity)? @ -None Was patient admitted / discharged? Hospital course, mention meds given and route, prescriptions, significant lab abnormalities, going to OR and other [facility] info. @ -Patient sent into the hospital by Dr. Meyers. IV was established. Patient was given Valium and pain control. Patient admitted to Dr. meyers and held NPO for surgery. Undiagnosed new problem with uncertain prognosis? @ -No Drug Therapy requiring intensive monitoring for toxicity (Heparin, Nitro, Insulin, Cardizem)? @ -No Were any procedures done? @ -No Diagnosis/symptom? @ -acute back pain, acute lumbar disc herniation Acute, or Chronic, or Acute on Chronic? @ -acute, recurrent Uncomplicated (without systemic symptoms) or Complicated (systemic symptoms)? @ -complicated Side effects of treatment? @ -No Exacerbation, Progression, or Severe Exacerbation? @ -No Poses a threat to life or bodily function? How? (Chest pain, [place], [place], pneumonia, PE, COPD, DKA, ARF, appy, cholecystitis, CVA, Diverticulitis, Homicidal, Suicidal, threat to staff... and all critical care pts) @ -No - Lab Data Result diagrams: 12/16/24 04:27 12/16/24 04:27 Lab Results 12/15/24 12/15/24 12/15/24 Range/Units 10:24 10:24 10:24 WBC 3.8 (3.8-10.6) k/uL RBC 4.09 (3.80-5.40) m/uL Hgb 12.8 (11.4-16.0) gm/dL Hct 37.9 (34.0-46.0) % MCV 92.5 (80.0-100.0) fL MCH 31.3 (25.0-35.0) pg MCHC 33.8 (31.0-37.0) g/dL RDW 11.8 (11.5-15.5) % Plt Count 145 L (150-450) k/uL MPV 8.4 Neutrophils % 65 % Lymphocytes % 21 % Monocytes % 7 % Eosinophils % 3 % Basophils % 1 % Neutrophils # 2.5 (1.3-7.7) k/uL Lymphocytes # 0.8 L (1.0-4.8) k/uL Monocytes # 0.3 (0-1.0) k/uL Eosinophils # 0.1 (0-0.7) k/uL Basophils # 0.0 (0-0.2) k/uL Sodium 135 L (137-145) mmol/L Potassium 4.3 (3.5-5.1) mmol/L Chloride 101 (98-107) mmol/L Carbon Dioxide 24 (22-30) mmol/L Anion Gap 10 mmol/L BUN 15 (7-17) mg/dL Creatinine 0.58 (0.52-1.04) mg/dL Est GFR (CKD-EPI)AfAm >90 (>60 ml/min/1.73 sqM) Est GFR (CKD-EPI)NonAf >90 (>60 ml/min/1.73 sqM) Glucose 108 H (74-99) mg/dL Calcium 10.0 (8.4-10.2) mg/dL Total Bilirubin 0.7 (0.2-1.3) mg/dL AST 25 (14-36) U/L ALT 22 (4-34) U/L Alkaline Phosphatase 46 (38-126) U/L Total Protein 7.6 (6.3-8.2) g/dL Albumin 5.1 H (3.5-5.0) g/dL HCG, Qual Blood Type A Positive Blood Type Confirm Blood Type Recheck No Previous Record Bld Type Recheck Status CABO Indicated Antibody Screen NEGATIVE Spec Expiration Date 12/18/2024 - 232312/15/24 12/15/24 Range/Units 10:24 10:26 WBC (3.8-10.6) k/uL RBC (3.80-5.40) m/uL Hgb (11.4-16.0) gm/dL Hct (34.0-46.0) % MCV (80.0-100.0) fL MCH (25.0-35.0) pg MCHC (31.0-37.0) g/dL RDW (11.5-15.5) % Plt Count (150-450) k/uL MPV Neutrophils % % Lymphocytes % % Monocytes % % Eosinophils % % Basophils % % Neutrophils # (1.3-7.7) k/uL Lymphocytes # (1.0-4.8) k/uL Monocytes # (0-1.0) k/uL Eosinophils # (0-0.7) k/uL Basophils # (0-0.2) k/uL Sodium (137-145) mmol/L Potassium (3.5-5.1) mmol/L Chloride (98-107) mmol/L Carbon Dioxide (22-30) mmol/L Anion Gap mmol/L BUN (7-17) mg/dL Creatinine (0.52-1.04) mg/dL Est GFR (CKD-EPI)AfAm (>60 ml/min/1.73 sqM) Est GFR (CKD-EPI)NonAf (>60 ml/min/1.73 sqM) Glucose (74-99) mg/dL Calcium (8.4-10.2) mg/dL Total Bilirubin (0.2-1.3) mg/dL AST (14-36) U/L ALT (4-34) U/L Alkaline Phosphatase (38-126) U/L Total Protein (6.3-8.2) g/dL Albumin (3.5-5.0) g/dL HCG, Qual Not Detected Blood Type Blood Type Confirm A Positive Blood Type Recheck Bld Type Recheck Status Antibody Screen Spec Expiration Date Disposition Clinical Impression: Lumbar radiculopathy, Lumbar back pain Disposition: ADMITTED IP TO THIS [facility] Condition: Stable Is patient prescribed a controlled substance at d/c from ED?: No Time of Disposition: 11:13 Decision to Admit Reason: Admit from EC Decision Date: 12/15/24 Decision Time: 11:13
[2024-12-15] MEDS ORDERED: NALOXONE 0.4 MG/ML 1 ML VIAL IV PRN (11:13)
[2024-12-15] MEDS: HYDROmorphone 0.5 MG/0.5 ML SYRINGE IVP SCH (11:49)
--- NOTE | 2024-12-15 13:11 | P.HPOR ---
History of Present Illness H&P Date: 12/15/24 Chief Complaint: Right lower extremity radiculopathy, weakness Patient is a 49-year-old female who presents to the emergency department as a direct admit from Dr. Ricardo office. Patient presents with low back pain radiating into the right leg. Dr. Ricardo performed a L5-S1 laminal foraminotomy with microdiscectomy on 08/27/2024. Patient did have some resolution of symptoms after the procedure, however, patient ending up having a bout of gastroenteritis where she was vomiting and began to have constant back pain again. Patient was seen in the office earlier this month and was sent for MRI. MRI results of the lumbar spine show reherniation at L5-S1. Patient was then sent from orthopedic office to the hospital for admission with planned surgical intervention in the form of revision L5-S1 laminoforaminotomy and microdiscectomy. Patient denies any bowel or bladder incontinence. Denies any saddle anesthesia. Patient mentions most of the pain and burning/numbness is in the right buttocks region and also mentions there is a lot of pain in the right lateral ankle. Denies any fevers. Denies being any blood thinners. Denies any other issues at this time. Past Medical History Past Medical History: No Reported History History of Any Multi-Drug Resistant Organisms: None Reported Past Surgical History: Back Surgery, Section, Tubal Ligation Additional Past Surgical History / Comment(s): D&C Past Anesthesia/Blood Transfusion Reactions: No Reported Reaction Past Psychological History: No Psychological Hx Reported Smoking Status: Never smoker Past Alcohol Use History: Occasional Past Drug Use History: None Reported Medications and Allergies Home Medications Medication Instructions Recorded Confirmed Type Ascorbic Acid [Vitamin C] 1,000 mg PO HS 08/25/24 12/15/24 History Cholecalciferol (Vitamin D3) 50 mcg PO HS 08/25/24 12/15/24 History [Vitamin D3 (50 Mcg = 2000 Iu)] Cyanocobalamin (Vitamin B-12) 1,000 mcg PO HS 08/25/24 12/15/24 History [Vitamin B-12] Inulin/Chromium Picolinate [Fiber 1 tab PO HS 08/25/24 12/15/24 History Gummies Chew] L.acidoph,Paracasei, B.lactis 1 cap PO HS 08/25/24 12/15/24 History [Probiotic] Red Yeast Rice 600 mg PO HS 08/25/24 12/15/24 History HYDROcodone/APAP 7.5-325MG [[place] 1 tab PO Q4-6H PRN #40 tab 08/28/24 12/15/24 Rx 7.5-325] D-Mannose 1 cap PO HS 12/15/24 12/15/24 History Magnesium(Unknown Dose) 1 tab PO HS 12/15/24 12/15/24 History Multivitamins, Thera [Multivitamin 1 tab PO HS 12/15/24 12/15/24 History (formulary)] Allergies Allergy/AdvReac Type Severity Reaction Status Date / Time morphine Allergy Rash/Itchin Verified 12/15/24 11:25 g Physical Examination Inspection: Negative for any open fractures, significant erythema/ecchymosis/open wounds. Sensation: Diminished sensation throughout the right lower extremity along the L5/S1 dermatome. Sensation equal, symmetric, by intact on rest of exam. Palpation: Patient does have some moderate tenderness palpation over the lower lumbar spine at midline and in the right SI joint. Nontender MS exam. Range of motion: Patient does have limited range of motion in the right ankle and dorsi/plantarflexion and EHL/FHL. Also similar range of motion in the right hip in flexion so extension secondary to referred pain in the low back. Good range of motion throughout rest of extremities on exam. Motor: 5/5 in all major motor groups in bilateral upper extremities and left lower extremity exam. 4/5 throughout right lower extremity on exam Neurovascular: Radial pulse intact, 2+ bilaterally. Cap refill under 3 seconds in digits of upper extremities. DP pulses palpable bilaterally. Special test: Negative Homans bilaterally. Negative Seferino bilaterally. Positive straight leg raise on the right lower extremity Results - Labs Labs: Abnormal Lab Results - Last 24 Hours (Table) 12/15/24 12/15/24 Range/Units 10:24 10:24 Plt Count 145 L (150-450) k/uL Lymphocytes # 0.8 L (1.0-4.8) k/uL Sodium 135 L (137-145) mmol/L Glucose 108 H (74-99) mg/dL Albumin 5.1 H (3.5-5.0) g/dL H & H 12/15/24 Range/Units 10:24 Hgb 12.8 (11.4-16.0) gm/dL Hct 37.9 (34.0-46.0) % Result Diagrams: 12/15/24 10:24 12/15/24 10:24 Assessment and Plan Assessment: 1. L5-S1 herniated nucleus pulposus with disc extrusion; right lower extremity radiculopathy; right lower extremity weakness; low back pain; history of recent L5-S1 laminal foraminotomy with microdiscectomy Plan: 1. L5-S1 herniated nucleus pulposus with disc extrusion; right lower extremity radiculopathy; right lower extremity weakness; low back pain; history of recent L5-S1 laminoforaminotomy with microdiscectomy -surgery scheduled for later today, 12/15/2024revision L5-S1 laminoforaminotomy with microdiscectomy. Patient to remain n.p.o. at this time. Pain medication as needed. Withhold blood thinners. We will continue to follow patient during stay in hospital. 2. Appreciate medical management 3. Pain management - norco; flexeril; gabapentin 4. DVT prophylaxis - mechanical 5. GI prophylaxis - senna 6. PT/OT -weightbearing as tolerated with walker as needed 7. Encourage incentive spirometer use 8. Discharge planning -pending Time with Patient: Less than 30
--- NOTE | 2024-12-15 13:29 | P.PN ---
Progress Note - Text Progress Note Date: 12/15/24 Spine Surgery Clinical and Risk Review DAVEY AYALA is a 49 YO FEMALE presenting for evaluation of SEVERE LOW BACK AND RLE PAIN WITH WEAKNESS, PERINEAL NUMBNESS/TINGLING AND ACUTE ONSET WITH WORSENING SX. It was my pleasure to have seen and examined DAVEY AYALA . In our visit today we have had a chance to go over subjective complaints, physical examination findings and treatments including the natural course history without intervention and various interventional options. The patient's imaging demonstrates the following: * LARGE RECURRENT HNP AT L5-S1 WITH SEVERE IMPINGEMENT PARACENTRAL ON THE RIGHT On a physical exam, DAVEY AYALA demonstrates the following: * SEVERE RLE RADICULOPATHY * +SLR RIGHT * WEAKNESS ? RLE * PARESTHESIAS RLE * DIFFICULTY WITH AMBULATION DUE TO PAIN AND DEBILITY I have explained to the patient that as their condition progresses it will cause further neurological deficits and eventual paralysis. Based on the patients imaging, physical exam, and the rapid progression and disabling nature of their symptoms, at this time I recommend surgery in the form of a: REVISION L5-S1 LAMINOFORAMINOTOMY WITH MICRODISCECOMTY I discussed the risk and benefits of this procedure at length with DAVEY AYALA . The patient and family agreed to consider pursuing the procedure above mentioned. Prior to surgery, they should follow up with her PCP (Cardio, ID, IM etc) for clearance. Questions were invited and answered, and the patient wishes to proceed as outlined below. Currently, I am recommendin. REVISION L5-S1 LAMINOFORAMINOTOMY WITH MICRODISCECOMTY 2. Obtain appropriate presurgical workup and clearances as discussed with the patient. 3. Review of surgical risks and benefits as well as an educational packet on the proposed surgical procedure. Risks: All surgical procedures come with inherent risks, including those related to positioning, anesthesia, intraoperative findings, and postoperative complications. It is important to understand that surgery does not come with any guarantee of a successful outcome as complications and adverse events are always possible. The patient was given a handout in the office today discussing the surgical procedure and risks associated with the intervention, both of which were discussed with the patient. These risks include but are not limited to the following: Experiencing same, different or even worse symptoms in back, neck, arms, or legs compared to before surgery. Requiring further surgery or other forms of treatment presently or at some time in the future at same or other levels of the intended spine surgery. On an extreme but fortunately relatively rare basis severe complications such as blindness, stroke, heart attack, temporary and/or permanent nerve injury, paralysis, coma, or may occur, sometimes without known explanation. Surgical complications may include but are not limited to risk of infection, fluid accumulation in the surgical dissection site, including a seroma or hematoma, that requires additional surgery, wound drainage, bleeding, new numbness or weakness, vision changes/loss, spinal fluid leakage, non-healing and/or infected incision, headaches, difficulty or inability to swallow, hoarseness, hemopneumothorax, pneumothorax, impotence, retrograde ejaculation, vaginal dryness; injury to nerves, spinal cord, blood vessels, lymphatics or other vital organs (i.e., bowel injury, injury to the great vessels); heterotopic bone formation; complications related to the hardware such as screws, rods, cages including misplaced hardware, device failure, instrumentation at the wrong spine level, hardware fracture/breakage, or hardware loosening; vertebral failure of the spinal column above or below the newly placed hardware; retained surgical instrumentations or devices and the need for further surgery. Medical risks of the planned spine surgery include but are not limited to generalized Infections to the whole body or local areas outside of the surgical site (sepsis), heart attack, bleeding, anaphylaxis, meningitis, seizure, epilepsy, hearing loss, burn meza, laceration of the head or other areas of the body, bruising, hypersensitivity of the skin, bladder over di stension; allergic reaction; shoulder injury related to positioning; fat, blood and air clots to other areas of the body like heart, lungs, brain; failure of internal organs such as lungs, kidneys, liver and excessive bleeding. If blood transfusions are necessary, note that transfusions may cause intolerance reactions such as anaphylaxis or other complex reactions. Despite best efforts, the results of spine surgery might not heal in terms of bone, soft tissues such as skin, fascia, ligaments, and joints. Additionally, in order to achieve best possible results, spine surgery may be carried out beyond the initially planned levels and involve decompression, fusion including insertion of hardware at levels other than the original intended area of surgical interest change some portions of the procedure in order to ensure the best possible outcomes. With spine surgery and spinal fusion, there are different off label uses of instrumentation (devices, implants and hardware) as well as biological substances (bone morphogenic proteins, demineralized bone matrix) as well as using extra bone from allograft sources (i.e. cadaver bone) or autograft (iliac crest bone, ribs, or the spine itself). The patient has been given information about these practices and their inherent risks and benefits. The patient has had a chance to review all the listed information, has been given print outs detailing this information, and has had all his/her questions answered to their satisfaction. It was my pleasure to have seen and examined DAVEY AYALA . In our visit today we have had a chance to go over my understanding of our patient's current condition, the natural course history without intervention and various interventional options. Questions were invited and answered, and the patient wishes to proceed as outlined above. I have seen and examined the patient for 25 minutes and we have spent more than 50% of the time in repeat and detailed counseling about the patient's condition, its natural course history without and as much as can be predicted with surgery and re-review of various surgical treatment options. In conclusion, DAVEY AYALA and their family requested we proceed with the above suggested surgery and are willing to accept risks and limitations of the suggested surgery as the nature of the disease process and our best attempts at treatment for the condition. Thank you again for allowing us to be part of your patient's care. Please don't hesitate to contact me if you have any further questions. Signed and authenticated by: Aram Bolanos [facility] [address] [place] [id number]
[2024-12-15] MEDS ORDERED: TRANEXAMIC 1,000 MG/100ML-NACL PREMIX BAG ONE (19:24)
[2024-12-15] MEDS ORDERED: SUCCINYLCHOLINE CHLORIDE 200 MG/10 ML VIAL IV ONE (19:24)
[2024-12-15] MEDS ORDERED: ROCURONIUM 10 MG/ML (5 ML VIAL) IV ONE (19:24)
[2024-12-15] MEDS ORDERED: PROPOFOL 10 MG/ML 20 ML VIAL IV ONE (19:24)
[2024-12-15] MEDS ORDERED: MIDAZOLAM 2 MG/2 ML VIAL ONE (19:24)
[2024-12-15] MEDS ORDERED: fentaNYL (PF) 50 MCG/ML 2 ML AMP ONE (19:24)
[2024-12-15] MEDS ORDERED: LIDOCAINE 1% INJ 10MG/ML (20 ML MDV) ONE (19:24)
[2024-12-15] MEDS ORDERED: KETOROLAC 15 MG/ML 1 ML VIAL ONE (19:24)
[2024-12-15] MEDS: CEFAZOLIN IV ONE (19:29)
[2024-12-15] MEDS: LACTATED RINGERS 1,000 ML IV ONE (19:29)
[2024-12-15] MEDS: LACTATED RINGERS IV ONE (19:29)
[2024-12-15] MEDS: LIDOCAINE 2%-EPI 1:100,000 20 ML VIAL SQ ONE (20:05)
[2024-12-15] MEDS: BUPIVACAINE (PF) 0.25% 30 ML VIAL SQ ONE (20:06)
[2024-12-15] MEDS: THROMBIN (BOVINE) 5,000 UNIT VIAL TOPICAL ONE (20:07)
[2024-12-15] MEDS ORDERED: SENNOSIDES-DOCUSATE SODIUM 1 EACH TAB PO PRN (21:24)
[2024-12-15] MEDS ORDERED: ONDANSETRON 4 MG/2 ML VIAL IVP PRN (21:24)
[2024-12-15] MEDS ORDERED: HYDROmorphone 0.5 MG/0.5 ML SYRINGE IVP PRN (21:24)
[2024-12-15] MEDS ORDERED: MAGNESIUM HYDROXIDE 2,400 MG/30 ML CUP PO PRN (21:24)
[2024-12-15] MEDS ORDERED: HYDROcodone/APAP 5-325MG 1 EACH TAB PO PRN (21:24)
--- NOTE | 2024-12-15 21:42 | P.OP ---
Date of Procedure: 12/15/24 Preoperative Diagnosis: 1. L5-S1 RIGHT PARACENTRAL HNP, SEVERE STENOSIS, REHERNIATION 2. IMPENDING CAUDA 3. SEVERE RLE RADICULOPATHY 4. LOW BACK PAIN Postoperative Diagnosis: 1. L5-S1 RIGHT PARACENTRAL HNP, SEVERE STENOSIS, REHERNIATION 2. IMPENDING CAUDA 3. SEVERE RLE RADICULOPATHY 4. LOW BACK PAIN 5. PARS FRACTURE POA RIGHT L5 Procedure(s) Performed: 1. REVISION RIGHT L5-S1 LAMINOFORAMINOTOMY WITH REEXPORATION L5-S1 AND MICRODISCECTOMY Implants: NONE Anesthesia: GETA Surgeon: Aram Ricardo Chain Sales Representative #1: Andre Flores (WAS PRESENT AND ASSISTED WITH ALL ASPECTS OF THE CASE FROM POSITION TO DRESSING PLACEMENT) Estimated Blood Loss (ml): 20 IV fluids (ml): 1,200 Urine output (ml): 0 Pathology: none sent Condition: stable Disposition: PACU Indications for Procedure: DAVEY AYALA is a 49 YO FEMALE presenting for evaluation of SEVERE LOW BACK AND RLE PAIN WITH WEAKNESS, PERINEAL NUMBNESS/TINGLING AND ACUTE ONSET WITH WORSENING SX. It was my pleasure to have seen and examined DAVEY AYALA . In our visit today we have had a chance to go over subjective complaints, physical examination findings and treatments including the natural course histo ry without intervention and various interventional options. The patient's imaging demonstrates the following: * LARGE RECURRENT HNP AT L5-S1 WITH SEVERE IMPINGEMENT PARACENTRAL ON THE RIGHT On a physical exam, DAVEY AYALA demonstrates the following: * SEVERE RLE RADICULOPATHY * +SLR RIGHT * WEAKNESS ? RLE * PARESTHESIAS RLE * DIFFICULTY WITH AMBULATION DUE TO PAIN AND DEBILITY I have explained to the patient that as their condition progresses it will cause further neurological deficits and eventual paralysis. Based on the patients imaging, physical exam, and the rapid progression and disabling nature of their symptoms, at this time I recommend surgery in the form of a: REVISION L5-S1 LAMINOFORAMINOTOMY WITH MICRODISCECOMTY I discussed the risk and benefits of this procedure at length with DAVEY AYALA . The patient and family agreed to consider pursuing the procedure above mentioned. Prior to surgery, they should follow up with her PCP (Cardio, ID, IM etc) for clearance. Questions were invited and answered, and the patient wishes to proceed as outlined below. Currently, I am recommendin. REVISION L5-S1 LAMINOFORAMINOTOMY WITH MICRODISCECOMTY Description of Procedure: REVISION RIGHT L5-S1 right Microdisc (MIS) The patient was seen and examined in the preoperative area. All preoperative protocols were followed. Informed consent was obtained, risks and benefits of the procedure were discussed at length. Risks including bleeding infection damage to the surrounding tissue and risk of reoperation were discussed with the patient. Risk of anesthesia up to and including was discussed with the patient. These are outlined in the risk review. They were willing to accept these risks and all the risks of surgery. The patient was given a weight-based dose of antibiotics in the form of 2 g Ancef. The patient was seen and evaluated by the anesthesia team who deemed them fit for surgery. The site was marked, the patient was willing to proceed with the procedure. The patient was transferred to the operative suite by the Department of anesthesia. They were then drifted off to sleep by the department anesthesia and GETA was performed. The patient tolerated this well. Snyder catheter was placed by nursing staff, a-traumatically. Once confirmation of lines and ventilation the patient was transferred to a prone Lane table very carefully. All bony prominences including wrists, elbows, axilla, chest, hips, and thighs, and feet were padded very well. Special attention was paid to the genitalia, and these were padded accordingly. SCDs were placed on bilateral lower extremities and were connected. Arms were well padded and placed on arm boards up and out in the 90/90 position. Once in position, again we confirmed good ventilation capabilities and that lines were running appropriately. The patients Lumbar spine was then exposed. 1010s were placed outlining the incisi on site. Standard alcohol was used to clean the incision site and allowed to dry. C-arm was used to needle localize the pedicles at L5-S1 and bio-samina the patient and confirm level for incision which was marked with a skin marker. Operative briefing was performed with all teams and everyone in agreement to proceed. The patient was then prepped and draped in a normal sterile fashion. Timeout was then performed, and all parties agreed with the procedure to be performed. Skin incision was made over the previously marked area. Fluoroscopy was then used to target the lamina and facet joints on the right hand side of L5-S1 and initial dilator for tubular retractor system was used to identify this area. Once in a good position, sequential dilation was taken up to 26 mm and tube selected. A 60 mm tube was then placed and secured to the table. This was confirmed to be in good position on AP and Lateral imaging. Limited myomectomy was then done to identify the lamina, interlaminar space, and facet joints. It was noted that there was a small fracture of the pars of L5 on the right leading to the IAP of L5. There was good apposition here and no apparent instability. This was not evident on imaging and could represent old fracture vs new. The area was decorticated to stimulate healing of the area and small excess fragments of autograft placed here. We then moved to the decompression. REVISION Clifford-laminotomy, partial medial facetectomy and foraminotomy were performed at L5-S1 using high speed tushar and Kerrison rongeur. The ligamentum flavum was removed with Kerrison and curette. Dura and roots protected. The disc space was identified along with the herniation. Large nucleus fragment was identified and and micro-pituitary used to remove this and multiple loose disc fragments. A large loose fragment of annulus was present anteriorly and on our second look this was identified and removed. Once fragments were removed, down biting curette was used to push any medial fragments down and towards the annulotomy and decompress centrally. The disc space was irrigated, and any loose fragments removed again. Bipolar was used for hemostasis and scarring of the annulotomy. The area was irrigated, and meticulous hemostasis performed. The bed was inspected, and all roots have ample room and are decompressed along with the dura. There were no injuries. Retractors were then removed. The wound was copiously irrigated with NSS. The deep fascia was closed with 0 PDS. Deep sub- q with 0 Vicryl and superficial with 2-0 Vicryl. Skin closed with chel. The wound edges approximated well. The wound was then cleaned, and It was then Covered with adaptic 4x4 and tegaderm. The patient was then transferred off the table back to their hospital bed a-traumatically. They were extubated by the department of anesthesia. They were then transferred to PACU in stable condition having tolerated the procedure with no complications.
--- NOTE | 2024-12-15 21:44 | FL ---
Fluoroscopy INDICATION: Pain FINDINGS: Fluoroscopy time: 15 seconds. Total dose area product (DAP) in uGy*m?, mGy*cm? (or similar): 2.0 to Images obtained: 0. IMPRESSION: 1. Documentation of fluoroscopy. [facility], , 12/15/2024 9:42 PM
--- NOTE | 2024-12-15 21:45 | XR ---
Fluoroscopy INDICATION: Pain FINDINGS: Fluoroscopy time: 15 seconds. Total dose area product (DAP) in uGy*m?, mGy*cm? (or similar): 2.0 to Images obtained: 2. Images over the lumbar spine to document procedure IMPRESSION: 1. Documentation of fluoroscopy. [facility], , 12/15/2024 9:43 PM
[2024-12-15] MEDS: MIDAZOLAM 2 MG/2 ML VIAL IV STA (21:58)
[2024-12-15] MEDS: HYDROmorphone 1 MG/ML 1 ML SYRINGE IVP PRN (23:09)
[2024-12-15] MEDS: HYDROmorphone 0.5 MG/0.5 ML SYRINGE IVP STA (23:17)
[2024-12-16] MEDS: ACETAMINOPHEN TAB 325 MG TAB PO SCH (00:57)
[2024-12-16] MEDS: CYCLOBENZAPRINE 5 MG TAB PO PRN (01:07)
[2024-12-16] MEDS: HYDROcodone/APAP 10-325MG 1 EACH TAB PO PRN (01:07)
--- NOTE | 2024-12-16 08:55 | CT ---
EXAMINATION TYPE: CT lumbar spine wo con DATE OF EXAM: 12/16/2024 2:14 AM COMPARISON: 08/25/2024 CLINICAL INDICATION: Female, 49 years old with history of s/p right L5-S1 laminoforaminotomy microdis cectomy, s/p right L5-S1 laminoforaminotomy microdiscectomy, pain TECHNIQUE: CT of the lumbar spine is performed on a spiral scan at 3 mm thick sections. Reconstructed images are performed in the coronal and sagittal planes. Contrast used: mL of , (none if empty) Oral contrast used: (none if empty) CT DLP: 492.5 mGycm, Automated exposure control for dose reduction was used. FINDINGS: T12-L1: No focal disc herniation or significant disc bulge is evident. No spinal canal stenosis or neural foraminal stenosis is present. L1-L2: No focal disc herniation or significant disc bulge is evident. No spinal canal stenosis or n eural foraminal stenosis is present L2-L3: Mild disc bulge is present with anterior thecal sac contact. No AP spinal canal stenosis is pr esent. Foramina are patent No spinal canal stenosis or neural foraminal stenosis is present L3-L4: Disc bulge is present with mild anterior thecal sac contact. No AP spinal canal stenosis is pr esent. Some facet hypertrophy is present. Some foraminal narrowing is present L4-L5: Broad-based disc bulge is present greater on the left paracentral left lateral direction. Righ t foraminal narrowing is present. More severe left foraminal stenosis is present. L5-S1: HemiLaminectomy has been performed on the right. Mild endplate changes present. No focal disc herniation or significant disc bulge. No spinal canal stenosis. Moderate foraminal narrowing is prese nt Vertebral alignment appears normal. IMPRESSION: 1. Status post right hemilaminectomy at L5-S1. 2. Minimal disc bulging present within the lumbar spine with anterior thecal sac contact. No stenosis present. 3. Left L4-5 severe foraminal stenosis. 4. Left paracentral left lateral disc bulging L4-5 [facility], , 12/16/2024 8:52 AM
--- NOTE | 2024-12-16 09:10 | P.DS ---
Providers Date of admission: 12/15/24 11:14 Expected date of discharge: 12/16/24 Attending physician: Aram Ricardo DO Consults: 12/15/24 21:24 Consult Physician Routine Consulting Provider: Jose F Bryant Consult Reason/Comments: medical management s/p right L5-S1 laminoforaminotomy microdiscectomy Do you want consulting provider notified?: Yes Primary care physician: [facility] Course: Date of admission: 12/15/2024 Date of discharge: 12/16/2024 Admission diagnosis: 1. L5-S1 RIGHT PARACENTRAL HNP, SEVERE STENOSIS, REHERNIATION 2. IMPENDING CAUDA 3. SEVERE RLE RADICULOPATHY 4. LOW BACK PAIN 5. PARS FRACTURE POA RIGHT L5 Discharge diagnosis: Same Attending physician: Dr. Ricardo Surgical procedures: Revision right L5-S1 Laminoforaminotomy with reexploration L5-S1 and microdiscectomy Brief history: Patient is a 49-year-old female with a history of L5-S1 right paracentral herniated nucleus pulposus severe stenosis and reherniation; severe right lower extremity radiculopathy; low back pain; pars fracture right L5. At this point patient has failed conservative treatment measures and has opted to proceed with a elective revision right L5-S1 laminal foraminotomy with reexploration L5-S1 and microdiscectomy. Hospital course: Details of patient's surgery can be found in operative report. Patient tolerated the procedure well and was subsequently transported to orthopedic floor. Patient's orthopeidc and medical care was provided daily. Patient had daily laboratory tests performed for evaluation of overall blood counts. Patient had daily physical therapy to include strengthening range of motion as well as education with walker ambulation. Patient was noted to have a relatively uneventful postoperative course. Patient reported satisfactory pain control with oral pain medications by postoperative day 1. Patient showed satisfactory progress with physical therapy. Patient moved steadily through the program and had no difficulty meeting the goals by postoperative day 1. Given patient's otherwise satisfactory course and having met physical therapy goals, plan is to discharge patient home on postoperative day 1. Discharge condition/disposition: Patient will be discharged home in stable condition. Discharge medications: Instructions are given on resumption of patient's normal daily medications per primary care recommendation, in addition patient will be prescribed Toradol; Flexeril; senna; Duricef. Spine Discharge and Recovery Instructions Date of Surgery: 12/15/2024 Diagnosis: 1. L5-S1 RIGHT PARACENTRAL HNP, SEVERE STENOSIS, REHERNIATION 2. IMPENDING CAUDA 3. SEVERE RLE RADICULOPATHY 4. LOW BACK PAIN 5. PARS FRACTURE POA RIGHT L5 Procedure(s) Performed: 1. REVISION RIGHT L5-S1 LAMINOFORAMINOTOMY WITH REEXPORATION L5-S1 AND MICRODISCECTOMY] Medications: See medication list All medication refills should be obtained through your primary care doctor or your clinic spine surgeon. Please discuss prescription refills at your follow up appointment. Do not call the hospital for medication refills. Dressing: Leave your dressing in place for a total of 5 days post operatively. Then you may remove your dressing and leave open to air. Keep the area clean and if not able to keep area clean, then cover with sterile gauze and tape. Showering: You may shower 3 days after your procedure allowing soap and water to run over incision. Do not scrub. Do not soak. Blot dry. Follow up: Please confirm a follow up appointment with your surgeon 3 weeks post operatively. Please make an appointment to follow up with your PCP in 1-2 weeks after surgery for evaluation '3 phase, 3-week plan' POST OP WEEKS 1-3 1. Lifting/carrying/pushing/pulling limited to less than 5 pounds. 2. Do not sit for longer than 15 minutes at one time. Get up and walk around. Prolonged sitting is NOT advised. If you lay down, see if you can tolerate laying down on you front (belly side) 3. Walk for periods of 15 minutes = 1 mile but no longer; do it multiple times times each day. 4. Ice your low back after activity. POST OP WEEKS 3-6 1. Lifting limited to less than 20 pounds. 2. Do not sit for longer than 30 minutes at a time. Frequently change positions. Use a sit-to stand workstation or take frequent breaks from sitting if you have returned to work. 3. Walk for 30 minutes each day. If possible, do these three or more times a day POST OP WEEKS 6+ At your 6-week appointment we will give you a physical therapy referral to focus on a core stabilization and strengthening program. You should also work on leg & buttock strengthening, hamstring & quadriceps stretching, and continue a low impact aerobic activity program such as swimming, walking, or riding a stationary bicycle. During the initial 6 weeks after your surgery, you are at the highest risk of re-injuring your spine. You should generally avoid BLT's (bending, lifting and twisting combination motions) and follow the above guidelines to reduce the chance of reinjury. You can anticipate post op appointments in our office at approximately 3 weeks and 6 weeks after your surgery. INCISION CARE: If your incision is not draining you do NOT need to cover it with a dressing. Keep your incision clean, dry and intact. In most cases, we apply skin glue, chel or sutures to the incision at the time of surgery. This will be like a crust or have the appearance of a scab and will fall off in time on its own. The stitches or chel need to be removed at 3 weeks post op appointment. You may begin to shower 3 days after surgery (this allows the glue to rodriguez well). However, please avoid scrubbing the incision site or peeling off any of the skin glue. This will ensure optimal healing of your incision. Also, during this time avoid soaking the incision area in water - this includes swimming pools, hot tubs or baths. No ointments, lotions or oils on the incision until your surgeon allows. Leave chel, sutures or glue in place. Neurological dysfunction that comes on suddenly can also be a sign of a stroke. Below some common symptoms of a stroke are listed: B - balance difficulty such as sudden onset walking or leaning to one side - NEW E - eye problem such as sudden double vision or trouble seeing on one side - NEW F - Facial weakness or numbness on one side - NEW A - Arm or leg weakness or numbness on one side - NEW S - Slurred speech or difficulty with word finding - NEW T - Time is BRAIN! Call 911 as soon as you recognize these symptoms Diet: Consume a regular diet rich in vegetables and lean protein such as chicken or fish. You should consume in a ratio of approximately 20% fats|40% carbohydrates|40%protein. Vegetables, sweet potatoes, brown rice or quinoa are examples of good carbohydrates. Chips, white bread, cookies and sweets/sugar are examples of bad carbohydrates. Limit your bad carbs, go wild with good carbs. "Life's Simple 7" Guidelines as per [place] [employer] These will help you reclaim your life after surgery and crop farm helper in your recovery, keeping in mind your restrictions. (1) Get Active. Physical activity can help people lose weight, control high blood pressure and cholesterol, feel emotionally better, and sleep better. (2) Control Cholesterol. Avoid a diet high in saturated fat, trans fat, & cholesterol. Limit whole milk & cream, ice cream, butter, egg yolks, processed meats (like sausage and hot dogs), and fatty meats. Choose healthy foods that are low in saturated fat, trans fat and cholesterol which include: Fruits and vegetables, fiber rich grain products (like whole grain pasta and brown rice), lean meat such as chicken, fish, nuts, seeds, and legumes. (3) Eat Better. Eat small portions. Shop at the grocery with a list and do not stray from it. Tips for a healthy diet include: Limit sodium intake to less than 1500mg daily, avoid prepackaged, processed, and fast foods, choose a diet rich in fruits, vegetables, and whole grain, high fiber foods, and limit saturated & cholesterol in your diet. (4) Manage Blood Pressure. If you have high blood pressure, you should have a cuff at home so that you can check your blood pressure regularly. Be sure you have a good cuff. An arm one is generally better than a wrist one. Bring the cuff to a doctor's appointment to validate that the measurements that your cuff are taking are accurate. Take your blood pressure twice daily when you are sitting down and relaxing. Record the numbers in a log and bring this log with you to your doctors' appointments. (5) Lose Weight if your BMI is above 25. A healthy BMI is between 19-25. To calculate Your BMI, you may use a Standard BMI Calculator on the NIH BMI website: <www.nhlbi.nih.gov/guidelines/obesity/BMI/bmicalc.htm>. Weigh oneself daily. If you are overweight, set a goal to lose weight. A pound a week loss if needed is a good target. (6) Reduce Blood Sugar. Limit foods and liquids with "added sugars." (Added sugars include sucrose, fructose, glucose, maltose, dextrose, high fructose corn syrup, corn syrup, concentrated fruit juice and honey). (7) Stop Smoking. If you smoke, quitting smoking is one of the best things that you can do for your health. Smoking increases your risk of heart attack, stroke, and peripheral vascular disease, which is a build-up of plaque in your arteries. Please discard all the cigarettes and lighters in your house. Have a plan for what you will do when you have the urge to smoke. Direct and second- hand smoke shortens your life as well as the lives of your family, friends and others around you. For your health and the health of those around you, please consider quitting! Proper Bending Body Mechanics: Maintain a wide stance with one foot slightly in front of the other. Keep your back straight. Bend utilizing the strength in your hips and knees. Do not bend at the waist. Maintain the lifted object at your waist-level close to your body. Avoid lifting weight that causes immediately pain or pain anywhere in the body afterwards. Smoking/Nicotine If there was ever one thing that you could do to increase your overall health, decrease your risk of cardiovascular problems by about 39% the second you make the choice, it is to STOP SMOKING. Your body's most instant gratification is the second you stop smoking. We have all heard the studies, read the articles but it is true, smoking is extremely bad for your overall health, and moreover it is detrimental to your bone health. Nicotine, IN ANY FORM, kills bone cells, prevents your body from healing fractures, and significantly prolongs healing after surgery. In spine surgery specifically, it increases your risk of not healing your bones to create a fusion and increases your risk of having a revision surgery due to this up to 60%. I know it is hard. I know it feels impossible. But there are ways. Take control of your life. We are here to help you through it. And when you are ready, ask us and we can direct you to help if you desire. Use the START Plan to Quit Smoking (please visit the Helpguide.org website listed below for more information): S = Set a quit date. Choose a date within the next 2 weeks, so you have enough time to prepare without losing your motivation to quit. If you mainly smoke at work, quit on the weekend, so you have a few days to adjust to the change. T = Tell family, friends, and co-workers that you plan to quit. Let your friends and family in on your plan to quit smoking and tell them you need their support and encouragement to stop. Look for a quit mesha who wants to stop smoking as well. You can help each other get through the rough times. A = Anticipate and plan for the challenges you'll face while quitting. Most people who begin smoking again do so within the first 3 months. You can help yourself make it through by preparing ahead for common challenges, such as nicotine withdrawal and cigarette cravings. R = Remove cigarettes and other tobacco products from your home, car, and work. Throw away all your cigarettes (no emergency pack!), lighters, ashtrays, and matches. Wash your clothes and freshen up anything that smells like smoke. Shampoo your car, clean your drapes and carpet, and steam your furniture. T = Talk to your doctor about getting help to quit. Your doctor can prescribe medication to help with withdrawal and suggest other alternatives. If you can't see a doctor, you can get many products over the counter at your local pharmacy or grocery store, including the nicotine patch, nicotine lozenges, and nicotine gum. Resources for Quitting Smoking: <https://www.[place].gov/documents/[facility]/Quit_Tobacco_Resources_for_patients_313 480_7.pdf> Supplementation: Take recommended dosages of Vitamin D and Calcium to help fortify your bones and help them to heal. See your health maintenance packet for dosages and recommended levels. DVT/VTE prophylaxis: You will be given compression stockings from the hospital. Wear these daily for the first two weeks after surgery. You may take them off at night. You may be prescribed a medication to help thin your blood. Take this as directed. If you are not prescribed this medication, early and frequent ambulation has been shown to be the best prophylaxis to deep vein thrombosis and sequelae related to this event. Assessment: 1. L5-S1 RIGHT PARACENTRAL HNP, SEVERE STENOSIS, REHERNIATION 2. IMPENDING CAUDA 3. SEVERE RLE RADICULOPATHY 4. LOW BACK PAIN 5. PARS FRACTURE POA RIGHT L5 Procedures: 1. REVISION RIGHT L5-S1 LAMINOFORAMINOTOMY WITH REEXPORATION L5-S1 AND MICRODISCECTOMY Patient Condition at Discharge: Stable Plan - Discharge Summary Discharge Rx Participant: No New Discharge Prescriptions: New cefaDROXiL [Duricef] 500 mg PO Q12HR 5 Days #10 cap Cyclobenzaprine [Flexeril] 5 mg PO TID #21 tablet Sennosides/Docusate Sodium [Senna Plus 8.6-50 mg Softgel] 1 each PO DAILY #20 capsule Ketorolac [Toradol] 10 mg PO Q6HR #24 tab No Action Ascorbic Acid [Vitamin C] 1,000 mg PO HS Inulin/Chromium Picolinate [Fiber Gummies Chew] 1 tab PO HS Cholecalciferol (Vitamin D3) [Vitamin D3 (50 Mcg = 2000 Iu)] 50 mcg PO HS HYDROcodone/APAP 7.5-325MG [[place] 7.5-325] 1 tab PO Q4-6H PRN #40 tab PRN Reason: Pain D-Mannose 1 cap PO HS Multivitamins, Thera [Multivitamin (formulary)] 1 tab PO HS Magnesium(Unknown Dose) 1 tab PO HS Red Yeast Rice 600 mg PO HS Cyanocobalamin (Vitamin B-12) [Vitamin B-12] 1,000 mcg PO HS L.acidoph,Paracasei, B.lactis [Probiotic] 1 cap PO HS Discharge Medication List Ascorbic Acid [Vitamin C] 1,000 mg PO HS 08/25/24 [History] Cholecalciferol (Vitamin D3) [Vitamin D3 (50 Mcg = 2000 Iu)] 50 mcg PO HS 08/25/24 [History] Cyanocobalamin (Vitamin B-12) [Vitamin B-12] 1,000 mcg PO HS 08/25/24 [History] Inulin/Chromium Picolinate [Fiber Gummies Chew] 1 tab PO HS 08/25/24 [History] L.acidoph,Paracasei, B.lactis [Probiotic] 1 cap PO HS 08/25/24 [History] Red Yeast Rice 600 mg PO HS 08/25/24 [History] HYDROcodone/APAP 7.5-325MG [[place] 7.5-325] 1 tab PO Q4-6H PRN #40 tab 08/28/24 [Rx] D-Mannose 1 cap PO HS 12/15/24 [History] Magnesium(Unknown Dose) 1 tab PO HS 12/15/24 [History] Multivitamins, Thera [Multivitamin (formulary)] 1 tab PO HS 12/15/24 [History] Cyclobenzaprine [Flexeril] 5 mg PO TID #21 tablet 12/16/24 [Rx] Ketorolac [Toradol] 10 mg PO Q6HR #24 tab 12/16/24 [Rx] Sennosides/Docusate Sodium [Senna Plus 8.6-50 mg Softgel] 1 each PO DAILY #20 capsule 12/16/24 [Rx] cefaDROXiL [Duricef] 500 mg PO Q12HR 5 Days #10 cap 12/16/24 [Rx] Follow up Appointment(s)/Referral(s): Samy Wall MD [Primary Care Provider] - 1-2 days Aram Ricardo DO [Doctor of Osteopathic Medicine] - 2 Weeks Activity/Diet/Wound Care/Special Instructions: Spine Discharge and Recovery Instructions Date of Surgery: 12/15/2024 Diagnosis: 1. L5-S1 RIGHT PARACENTRAL HNP, SEVERE STENOSIS, REHERNIATION 2. IMPENDING CAUDA 3. SEVERE RLE RADICULOPATHY 4. LOW BACK PAIN 5. PARS FRACTURE POA RIGHT L5 Procedure(s) Performed: 1. REVISION RIGHT L5-S1 LAMINOFORAMINOTOMY WITH REEXPORATION L5-S1 AND MICROD ISCECTOMY] Medications: See medication list All medication refills should be obtained through your primary care doctor or your clinic spine surgeon. Please discuss prescription refills at your follow up appointment. Do not call the hospital for medication refills. Dressing: Leave your dressing in place for a total of 5 days post operatively. Then you may remove your dressing and leave open to air. Keep the area clean and if not able to keep area clean, then cover with sterile gauze and tape. Showering: You may shower 3 days after your procedure allowing soap and water to run over incision. Do not scrub. Do not soak. Blot dry. Follow up: Please confirm a follow up appointment with your surgeon 3 weeks post operatively. Please make an appointment to follow up with your PCP in 1-2 weeks after surgery for evaluation '3 phase, 3-week plan' POST OP WEEKS 1-3 1. Lifting/carrying/pushing/pulling limited to less than 5 pounds. 2. Do not sit for longer than 15 minutes at one time. Get up and walk around. Prolonged sitting is NOT advised. If you lay down, see if you can tolerate laying down on you front (belly side) 3. Walk for periods of 15 minutes = 1 mile but no longer; do it multiple times times each day. 4. Ice your low back after activity. POST OP WEEKS 3-6 1. Lifting limited to less than 20 pounds. 2. Do not sit for longer than 30 minutes at a time. Frequently change positions. Use a sit-to stand workstation or take frequent breaks from sitting if you have returned to work. 3. Walk for 30 minutes each day. If possible, do these three or more times a day POST OP WEEKS 6+ At your 6-week appointment we will give you a physical therapy referral to focus on a core stabilization and strengthening program. You should also work on leg & buttock strengthening, hamstring & quadriceps stretching, and continue a low impact aerobic activity program such as swimming, walking, or riding a stationary bicycle. During the initial 6 weeks after your surgery, you are at the highest risk of re-injuring your spine. You should generally avoid BLT's (bending, lifting and twisting combination motions) and follow the above guidelines to reduce the chance of reinjury. You can anticipate post op appointments in our office at approximately 3 weeks and 6 weeks after your surgery. INCISION CARE: If your incision is not draining you do NOT need to cover it with a dressing. Keep your incision clean, dry and intact. In most cases, we apply skin glue, chel or sutures to the incision at the time of surgery. This will be like a crust or have the appearance of a scab and will fall off in time on its own. The stitches or chel need to be removed at 3 weeks post op appointment. You may begin to shower 3 days after surgery (this allows the glue to rodriguez well). However, please avoid scrubbing the incision site or peeling off any of the skin glue. This will ensure optimal healing of your incision. Also, during this time avoid soaking the incision area in water - this includes swimming pools, hot tubs or baths. No ointments, lotions or oils on the incision until your surgeon allows. Leave chel, sutures or glue in place. Neurological dysfunction that comes on suddenly can also be a sign of a stroke. Below some common symptoms of a stroke are listed: B - balance difficulty such as sudden onset walking or leaning to one side - NEW E - eye problem such as sudden double vision or trouble seeing on one side - NEW F - Facial weakness or numbness on one side - NEW A - Arm or leg weakness or numbness on one side - NEW S - Slurred speech or difficulty with word finding - NEW T - Time is BRAIN! Call 911 as soon as you recognize these symptoms Diet: Consume a regular diet rich in vegetables and lean protein such as chicken or fish. You should consume in a ratio of approximately 20% fats|40% carbohydrates|40%protein. Vegetables, sweet potatoes, brown rice or quinoa are examples of good carbohydrates. Chips, white bread, cookies and sweets/sugar are examples of bad carbohydrates. Limit your bad carbs, go wild with good carbs. "Life's Simple 7" Guidelines as per [place] [employer] These will help you reclaim your life after surgery and crop farm helper in your recovery, keeping in mind your restrictions. (1) Get Active. Physical activity can help people lose weight, control high blood pressure and cholesterol, feel emotionally better, and sleep better. (2) Control Cholesterol. Avoid a diet high in saturated fat, trans fat, & cholesterol. Limit whole milk & cream, ice cream, butter, egg yolks, processed meats (like sausage and hot dogs), and fatty meats. Choose healthy foods that are low in saturated fat, trans fat and cholesterol which include: Fruits and vegetables, fiber rich grain products (like whole grain pasta and brown rice), lean meat such as chicken, fish, nuts, seeds, and legumes. (3) Eat Better. Eat small portions. Shop at the grocery with a list and do not stray from it. Tips for a healthy diet include: Limit sodium intake to less than 1500mg daily, avoid prepackaged, processed, and fast foods, choose a diet rich in fruits, vegetables, and whole grain, high fiber foods, and limit saturated & cholesterol in your diet. (4) Manage Blood Pressure. If you have high blood pressure, you should have a cuff at home so that you can check your blood pressure regularly. Be sure you h ave a good cuff. An arm one is generally better than a wrist one. Bring the cuff to a doctor's appointment to validate that the measurements that your cuff are taking are accurate. Take your blood pressure twice daily when you are sitting down and relaxing. Record the numbers in a log and bring this log with you to your doctors' appointments. (5) Lose Weight if your BMI is above 25. A healthy BMI is between 19-25. To calculate Your BMI, you may use a Standard BMI Calculator on the NIH BMI website: <www.nhlbi.nih.gov/guidelines/obesity/BMI/bmicalc.htm>. Weigh oneself daily. If you are overweight, set a goal to lose weight. A pound a week loss if needed is a good target. (6) Reduce Blood Sugar. Limit foods and liquids with "added sugars." (Added sugars include sucrose, fructose, glucose, maltose, dextrose, high fructose corn syrup, corn syrup, concentrated fruit juice and honey). (7) Stop Smoking. If you smoke, quitting smoking is one of the best things that you can do for your health. Smoking increases your risk of heart attack, stroke, and peripheral vascular disease, which is a build-up of plaque in your arteries. Please discard all the cigarettes and lighters in your house. Have a plan for what you will do when you have the urge to smoke. Direct and second- hand smoke shortens your life as well as the lives of your family, friends and others around you. For your health and the health of those around you, please consider quitting! Proper Bending Body Mechanics: Maintain a wide stance with one foot slightly in front of the other. Keep your back straight. Bend utilizing the strength in your hips and knees. Do not bend at the waist. Maintain the lifted object at your waist-level close to your body. Avoid lifting weight that causes immediately pain or pain anywhere in the body afterwards. Smoking/Nicotine If there was ever one thing that you could do to increase your overall health, decrease your risk of cardiovascular problems by about 39% the second you make the choice, it is to STOP SMOKING. Your body's most instant gratification is the second you stop smoking. We have all heard the studies, read the articles but it is true, smoking is extremely bad for your overall health, and moreover it is detrimental to your bone health. Nicotine, IN ANY FORM, kills bone cells, prevents your body from healing fractures, and significantly prolongs healing after surgery. In spine surgery specifically, it increases your risk of not healing your bones to create a fusion and increases your risk of having a revision surgery due to this up to 60%. I know it is hard. I know it feels impossible. But there are ways. Take control of your life. We are here to help you through it. And when you are ready, ask us and we can direct you to help if you desire. Use the START Plan to Quit Smoking (please visit the Helpguide.org website listed below for more information): S = Set a quit date. Choose a date within the next 2 weeks, so you have enough time to prepare without losing your motivation to quit. If you mainly smoke at work, quit on the weekend, so you have a few days to adjust to the change. T = Tell family, friends, and co-workers that you plan to quit. Let your friends and family in on your plan to quit smoking and tell them you need their support and encouragement to stop. Look for a quit mesha who wants to stop smoking as well. You can help each other get through the rough times. A = Anticipate and plan for the challenges you'll face while quitting. Most people who begin smoking again do so within the first 3 months. You can help yourself make it through by preparing ahead for common challenges, such as nicotine withdrawal and cigarette cravings. R = Remove cigarettes and other tobacco products from your home, car, and work. Throw away all your cigarettes (no emergency pack!), lighters, ashtrays, and ma tches. Wash your clothes and freshen up anything that smells like smoke. Shampoo your car, clean your drapes and carpet, and steam your furniture. T = Talk to your doctor about getting help to quit. Your doctor can prescribe medication to help with withdrawal and suggest other alternatives. If you can't see a doctor, you can get many products over the counter at your local pharmacy or grocery store, including the nicotine patch, nicotine lozenges, and nicotine gum. Resources for Quitting Smoking: <https://www.[place].gov/documents/[facility]/Quit_Tobacco_Resources_for_patients_313 480_7.pdf> Supplementation: Take recommended dosages of Vitamin D and Calcium to help fortify your bones and help them to heal. See your health maintenance packet for dosages and recommended levels. DVT/VTE prophylaxis: You will be given compression stockings from the hospital. Wear these daily for the first two weeks after surgery. You may take them off at night. You may be prescribed a medication to help thin your blood. Take this as directed. If you are not prescribed this medication, early and frequent ambulation has been shown to be the best prophylaxis to deep vein thrombosis and sequelae related to this event. Discharge Disposition: HOME SELF-CARE
--- NOTE | 2024-12-16 09:17 | P.PN ---
Subjective Progress Note Date: 12/16/24 Principal diagnosis: 1. L5-S1 RIGHT PARACENTRAL HNP, SEVERE STENOSIS, REHERNIATION 2. IMPENDING CAUDA 3. SEVERE RLE RADICULOPATHY 4. LOW BACK PAIN 5. PARS FRACTURE POA RIGHT L5 Patient was seen at bedside this morning lying in the semicomposition with dressing present over right lower lumbar spine. Patient says she does have significant improvement in symptoms in the right lower extremity since surgery was performed last night. Patient says she does not have any significant numbness or tingling along the right ankle. Patient mentions she is still having some burning in the right buttocks region and pain in the right lower back, however she does note significant improvement in symptoms. Patient says she does have a walker for home. Awaiting PT/OT evaluation and arrival of LSO brace. Patient denies any other issues at this time. Looking forward to going home later today. Objective - Vital Signs Vital signs: Vital Signs Temp 97.7 F 12/16/24 00:55 Pulse 87 12/16/24 00:55 Resp 17 12/16/24 00:55 BP 106/65 12/16/24 00:55 Pulse Ox 94 L 12/16/24 00:55 FiO2 Intake & Output 12/15/24 12/16/24 12/16/24 18:59 06:59 18:59 Intake Total 1300 Output Total 650 Balance 650 Weight 74.389 kg Intake: IV 1300 Output: Urine 300 Post Void Residual 300 Estimated Blood Loss 50 Other: # Voids 0 - Exam Inspection: Negative for any open fractures, significant erythema/ecchymo sis/open wounds. Sensation: Diminished, but improved since surgery sensation throughout the right lower extremity along the L5/S1 dermatome. Sensation equal, symmetric, by intact on rest of exam. Palpation: Patient does have some moderate tenderness palpation over the lower lumbar spine at midline and in the right SI joint. Nontender on rest of exam. Range of motion: Patient does have limited range of motion in the right ankle and dorsi/plantarflexion and EHL/FHL. Also similar range of motion in the right hip in flexion so extension secondary to referred pain in the low back. Good range of motion throughout rest of extremities on exam. Motor: 5/5 in all major motor groups in bilateral upper extremities and left lower extremity exam. 4/5 throughout right lower extremity on exam Neurovascular: Radial pulse intact, 2+ bilaterally. Cap refill under 3 seconds in digits of upper extremities. DP pulses palpable bilaterally. Special test: Negative Homans bilaterally. Negative Seferino bilaterally. Positive straight leg raise on the right lower extremity - Labs CBC & Chem 7: 12/15/24 10:24 12/15/24 10:24 Labs: Abnormal Lab Results - Last 24 Hours (Table) 12/15/24 12/15/24 Range/Units 10:24 10:24 Plt Count 145 L (150-450) k/uL Lymphocytes # 0.8 L (1.0-4.8) k/uL Sodium 135 L (137-145) mmol/L Glucose 108 H (74-99) mg/dL Albumin 5.1 H (3.5-5.0) g/dL Assessment and Plan Assessment: 1. L5-S1 RIGHT PARACENTRAL HNP, SEVERE STENOSIS, REHERNIATION 2. IMPENDING CAUDA 3. SEVERE RLE RADICULOPATHY 4. LOW BACK PAIN 5. PARS FRACTURE POA RIGHT L5 Procedure(s) Performed: 1. REVISION RIGHT L5-S1 LAMINOFORAMINOTOMY WITH REEXPORATION L5-S1 AND MICRODISCECTOMY] Plan: 1. L5-S1 RIGHT PARACENTRAL HNP, SEVERE STENOSIS, REHERNIATION; IMPENDING CAUDA; SEVERE RLE RADICULOPATHY; LOW BACK PAIN; PARS FRACTURE POA RIGHT L5 - REVISION RIGHT L5-S1 LAMINOFORAMINOTOMY WITH REEXPORATION L5-S1 AND MICRODISCECTOMY surgery performed yesterday, 12/15/2024. Patient still at bedside this morning. Awaiting arrival of O brace. Pending PT/OT evaluation, discharge home today. Dressing is clean, dry, intact. Weightbearing as tolerated with walker and brace on while up and about. Follow-up in office in [address] Ricardo. Discharge home today. 2. Appreciate medical management 3. Pain management - norco; flexeril; gabapentin 4. DVT prophylaxis - mechanical 5. GI prophylaxis - senna 6. PT/OT -weightbearing as tolerated with walker as needed 7. Encourage incentive spirometer use 8. Discharge planning -home today Time with Patient: Less than 30
[2024-12-16 10:14] LABS: BUN/Creat Ratio 26.17 Ratio (12.00-20.00); Basophils # (A) 0.01 X 10*3/uL (0.00-0.10); Basophils % (A) 0.2 %; Blood Urea Nitrogen 15.7 mg/dL (9.0-27.0); Calcium 9.2 mg/dL (8.7-10.3); Carbon Dioxide 22.9 mmol/L (21.6-31.8); Chloride 103 mmol/L (96-109); Eosinophils # (A) 0.01 X 10*3/uL (0.04-0.35); Eosinophils % (A) 0.2 %; Glucose 80 mg/dL (70-110); HCT 31.4 % (37.2-46.3); HGB 10.6 g/dL (12.0-15.0); Lymphocytes # (A) 0.87 X 10*3/uL (0.90-5.00); Lymphocytes % (A) 18.5 %; MCH 30.7 pg (27.0-32.0); MCHC 33.8 g/dL (32.0-37.0); Mean Platelet Volume 11.8 FL (9.5-12.2); Monocytes # (A) 0.39 X 10*3/uL (0.20-1.00); Monocytes % (A) 8.3 %; NRBC Per 100 WBC 0 X 10*3/uL (0.00-0.01); Neutrophils # (A) 3.42 X 10*3/uL (1.80-7.70); Neutrophils % (A) 72.6 %; Platelet Count 168 X 10*3/uL (140-440); Potassium 4.2 mmol/L (3.5-5.5); RBC 3.45 X 10*6/uL (4.10-5.20); RDW 12.2 % (11.5-14.5); Sodium 138 mmol/L (135-145); WBC 4.71 X 10*3/uL (4.50-10.00)
[2024-12-16 14:34] VITALS: BP 121/80; PULSE 74; RESP 18; TEMP 98
--- NOTE | 2024-12-16 16:37 | P.CONS ---
History of Present Illness - Reason for Consult Consult date: 12/16/24 - History of Present Illness 49 year old F with no significant PMH presents to [facility] for elective surgery. She underwent L5-S1 laminoforaminotomy with Dr. Ricardo. [facility] consulted for medical management. Patient reports well controlled back pain. Urinating freely. Passing gas with no bowel movement. CBC and BMP significant for RBC 3.45, Hg 10.6, Hct 31.4, AG 12.1, BUN/Cr 26.17. BP 121/80, HR 74, T 98F, RR 18, 98% on RA. General: non toxic, no distress, appears at stated age Derm: warm, dry Head: atraumatic, normocephalic, symmetric Eyes: EOMI, no lid lag, anicteric sclera Mouth: no lip lesion, mucus membranes moist Cardiovascular: S1S2 reg, no murmur Lungs: CTA bilateral, no rhonchi, no rales , no accessory muscle use Ext: no gross muscle atrophy, no edema, no contractures Neuro: no focal neuro deficits Psych: Alert, oriented, appropriate affect Based on my assessment of this patient, this patient meets a high complexity level of care. Acute blood loss anemia which is an expected result of surgery Status post L5-S1 laminoforaminotomy with Dr. Ricardo on 12/15 Medically stable for discharge home. CODE STATUS: FULL CODE DVT Prophylaxis: Early ambulation GI Prophylaxis: Designated medical POA if patient is not able to make medical decisions for themselves: I have reviewed the following coding consultant notes: Operative, Ortho note. I have reviewed the results of the following tests: CBC, BMP. I have ordered the following tests: I have discussed the care of this patient with the following independent historian: I have independently interpreted the following test below: I have discussed the management of this patient with the following physician: Past Medical History Past Medical History: No Reported History History of Any Multi-Drug Resistant Organisms: None Reported Past Surgical History: Back Surgery, Section, Tubal Ligation Additional Past Surgical History / Comment(s): D&C Past Anesthesia/Blood Transfusion Reactions: No Reported Reaction Past Psychological History: No Psychological Hx Reported Smoking Status: Never smoker Past Alcohol Use History: Occasional Past Drug Use History: None Reported Medications and Allergies Home Medications Medication Instructions Recorded Confirmed Type Ascorbic Acid [Vitamin C] 1,000 mg PO HS 08/25/24 12/15/24 History Cholecalciferol (Vitamin D3) 50 mcg PO HS 08/25/24 12/15/24 History [Vitamin D3 (50 Mcg = 2000 Iu)] Cyanocobalamin (Vitamin B-12) 1,000 mcg PO HS 08/25/24 12/15/24 History [Vitamin B-12] Inulin/Chromium Picolinate [Fiber 1 tab PO HS 08/25/24 12/15/24 History Gummies Chew] L.acidoph,Paracasei, B.lactis 1 cap PO HS 08/25/24 12/15/24 History [Probiotic] Red Yeast Rice 600 mg PO HS 08/25/24 12/15/24 History HYDROcodone/APAP 7.5-325MG [[place] 1 tab PO Q4-6H PRN #40 tab 08/28/24 12/15/24 Rx 7.5-325] D-Mannose 1 cap PO HS 12/15/24 12/15/24 History Magnesium(Unknown Dose) 1 tab PO HS 12/15/24 12/15/24 History Multivitamins, Thera [Multivitamin 1 tab PO HS 12/15/24 12/15/24 History (formulary)] Cyclobenzaprine [Flexeril] 5 mg PO TID #21 tablet 12/16/24 Rx Ketorolac [Toradol] 10 mg PO Q6HR #24 tab 12/16/24 Rx Sennosides/Docusate Sodium [Senna 1 each PO DAILY #20 capsule 12/16/24 Rx Plus 8.6-50 mg Softgel] cefaDROXiL [Duricef] 500 mg PO Q12HR 5 Days #10 cap 12/16/24 Rx Allergies Allergy/AdvReac Type Severity Reaction Status Date / Time morphine Allergy Rash/Itchin Verified 12/15/24 11:25 g Physical Exam Vitals: Vital Signs Temp Pulse Resp BP Pulse Ox 12/16/24 13:39 98.0 F 74 18 121/80 98 12/16/24 07:33 98.1 F 66 17 128/86 94 L 12/16/24 00:55 97.7 F 87 17 106/65 94 L 12/16/24 00:40 79 95/52 95 12/16/24 00:25 81 103/61 95 12/16/24 00:10 80 103/62 94 L 12/15/24 23:55 80 105/62 96 12/15/24 23:40 90 106/67 95 12/15/24 23:25 100 112/65 94 L 12/15/24 23:10 101 H 124/67 99 12/15/24 22:55 99 112/63 96 12/15/24 22:40 98.3 F 103 H 16 110/65 95 12/15/24 22:30 100 16 111/58 99 12/15/24 22:15 101 H 18 114/60 98 12/15/24 22:00 106 H 20 113/61 99 12/15/24 21:45 110 H 20 119/61 100 12/15/24 21:35 116 H 18 120/60 99 12/15/24 21:28 97.3 F L 115 H 22 122/75 96 Intake and Output 12/16/24 12/16/24 12/16/24 06:59 14:59 22:59 Output Total 600 Balance -600 Output: Urine 300 Post Void Residual 300 Other: # Voids 2 Results CBC & Chem 7: 12/16/24 04:27 12/16/24 04:27 Labs: Abnormal Lab Results - Last 24 Hours (Table) 12/16/24 12/16/24 Range/Units 04:27 04:27 RBC 3.45 L (4.10-5.20) X 10*6/uL Hgb 10.6 L (12.0-15.0) g/dL Hct 31.4 L (37.2-46.3) % Lymphocytes # 0.87 L (0.90-5.00) X 10*3/uL Eosinophils # 0.01 L (0.04-0.35) X 10*3/uL Anion Gap 12.10 H (4.00-12.00) mmol/L BUN/Creatinine Ratio 26.17 H (12.00-20.00) Ratio
== END 2024-12-16 14:45 | disposition home or self-care (01) ==
LOC: OR 09:58 → 4SSUR 11:14
PROVIDERS: ADMIT Orthopaedic Surgery; ATTEND Orthopaedic Surgery
DX: M51.17 Intervertebral disc disorders with radiculopathy, lumbosacral region (principal); M43.06 Spondylolysis, lumbar region; D62 Acute posthemorrhagic anemia; Z88.5 Allergy status to narcotic agent
CPT/HCPCS: 63042; 96376 ×3; 96365; 96366; 96375 ×2; 99285; 36415; 93005; 97116; 97162; 86900; 86901; 80053; 80048; 85025 ×2; 86850; 84703; 72100; 72131; G0378 ×2; J2250; J0330; J1100; J3360; J0690 ×2; J2003; J3010; J1171 ×3; J1885; J2704; J0665